=== PATIENT | female | born 1980 | race Two or more races ===

== ENCOUNTER 2017-02-27 08:38 | Inpatient (IN) | payer MEDICAID ==
[~2017-02-27] VITALS: Ht 152.4 cm; Wt 63.5 kg
[2017-02-27 08:40] VITALS: BP 139/93
[2017-02-27] MEDS ORDERED: Morphine Sulfate 4mg/ml Inj IVP ONE ×2 (09:00→15:00)
[2017-02-27] MEDS ORDERED: Famotidine 20 MG/ 2ML VIAL IVP ONE (09:00)
[2017-02-27 09:10] LABS: APPEARANCE,URINE SLIGHTLY CLOUDY; BASOPHILS % (AUTO) 0.7 % (0.0-2.0); EOSINOPHILS % (AUTO) 0.4 % (0.0-3.0); KETONES,URINE 1+ (NEGATIVE); LEUKOCYTE ESTERASE ,URINE 2+ (NEGATIVE); LYMPHOCYTES % (AUTO) 21.8 % (20.0-45.0); MEAN CORPUSCULAR HEMOGLOBIN 28.8 PG (27.0-31.0); MEAN CORPUSCULAR HGB CONC 34.2 G/DL (32.0-36.0); MEAN CORPUSCULAR VOLUME 84 FL (80-99); MEAN PLATELET VOLUME 7.1 FL (6.5-10.1); NEUTROPHILS % (AUTO) 69.1 % (45.0-75.0); NITRITE,URINE NEGATIVE (NEGATIVE); PH,URINE 7 (4.5-8.0); PLATELET COUNT 204 K/UL (150-450); PROTEIN,URINE 1+ (NEGATIVE); RED BLOOD COUNT 4.96 M/UL (4.20-5.40); RED CELL DISTRIBUTION WIDTH 14.1 % (11.6-14.8); UROBILINOGEN,URINE 4 MG/DL (0.0-1.0); WHITE BLOOD COUNT 5.6 K/UL (4.8-10.8)
[2017-02-27] MEDS ORDERED: ATENOLOL50 MG ORAL (09:18)
[2017-02-27] MEDS ORDERED: METFORMIN HCL1000 M1 ORAL (09:18)
[2017-02-27] MEDS ORDERED: GABAPENTIN300 MG ORAL (09:18)
[2017-02-27] MEDS ORDERED: LISINOPRIL-HCT1 EAC1 ORAL (09:18)
[2017-02-27 09:24] LABS: ALANINE AMINOTRANSFERASE 947 U/L (12-78); ALBUMIN/GLOBULIN RATIO 0.6 (1.0-2.7); AMORPHOUS SEDIMENT,UR FEW /LPF; ANION GAP 17 mmol/L (5-15); ASPARTATE AMINO TRANSFERASE 952 U/L (15-37); BACTERIA,URINE FEW /HPF; CALCIUM 7.9 MG/DL (8.5-10.1); CARBON DIOXIDE 19 MMOL/L (21-32); CHLORIDE 98 MMOL/L (98-107); GLOMERULAR FILTRATION RATE > 60 mL/min (>60); LIPASE 481 U/L (73-393); SODIUM 134 MMOL/L (136-145); SQUAMOUS EPITHELIAL CELL,UR MODERATE /LPF (NONE/OCC); TOTAL PROTEIN 7.9 G/DL (6.4-8.2)
--- NOTE | 2017-02-27 09:32 | Emergency Room Report ---
History of Present Illness General Chief Complaint: Abdominal Pain Source: Patient, EMS Present Illness HPI 36-year-old female presents ED for evaluation. Patient brought in by EMS complaining of abdominal pain. Started this morning around 8 AM at a restaurant. Patient states she has cramping abdominal pain, 8/10, diffuse. Nonradiating. Notes vomiting. Denies fevers or chills. Denies chest pain or shortness of breath. Denies diarrhea. Denies sick contacts or recent travel. No aggravating relieving factors. Denies any other associated symptoms Allergies: Coded Allergies: No Known Allergies (Unverified , 02/27/17) Patient History Past Medical History: DM, HTN Past Surgical History: none Pertinent Family History: none Social History: Denies: smoking, alcohol use, drug use Last Menstrual Period: 02/20/17 Now: No Immunizations: UTD Reviewed Nursing Documentation: PMH: Agreed, PSxH: Agreed Nursing Documentation-PMH Past Medical History: No History, Except For Hx Hypertension: Yes Hx Diabetes: Yes Review of Systems All Other Systems: negative except mentioned in HPI Physical Exam Vital Signs Date Time Temp Pulse Resp B/P (MAP) Pulse Ox O2 Delivery O2 Flow Rate FiO2 02/27/17 08:34 98.1 80 18 158/118 99 Room Air Sp02 EP Interpretation: reviewed, normal General Appearance: alert, GCS 15, non-toxic, mild distress, obese Head: normocephalic Eyes: bilateral eye normal inspection, bilateral eye PERRL ENT: normal ENT inspection Neck: normal inspection Respiratory: chest non-tender, lungs clear, normal breath sounds, speaking full sentences Cardiovascular #1: regular rate, rhythm, no edema Gastrointestinal: normal bowel sounds, soft, non-distended, no guarding, no rebound, tenderness Rectal: deferred Genitourinary: no CVA tenderness Musculoskeletal: normal inspection Neurologic: alert, oriented x3, responsive, motor strength/tone normal, sensory intact, speech normal Psychiatric: normal inspection Skin: normal inspection Lymphatic: normal inspection Medical Decision Making Diagnostic Impression: Primary Impression: Abdominal pain Qualified Codes: R10.11 - Right upper quadrant pain ER Course Hospital Course 36-year-old female presents to ED with abdominal pain and vomiting Differential diagnoses include: BPH, cystitis, pyelonephritis, kidney stone Clinical course 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 After initial history and physical I ordered labs, IV fluids, UA, pain medication and CT scan Labs - no leukocytosis, Hb/Hct stable, LFTs elevated, Lipase > 400 CT abdomen and pelvis - hepatomegaly, gallbladder with stones Patient continues to have pain. I believe patient should be admitted for further evaluation Case discussed with Dr. Padron and he agreed to accept the patient to his service for further care and support I feel this is a highly complex case requiring extensive working including EKG/ Rhythm strip, Xray/CT/US, Blood/urine lab work, repeat exams while in ED, and administration of strong opiates/narcotics for pain control, admission to hospital or close patient follow up. Diagnosis - abdominal pain Patient admitted to floor in serious condition Labs Test 02/27/17 08:50 White Blood Count 5.6 K/UL (4.8-10.8) Red Blood Count 4.96 M/UL (4.20-5.40) Hemoglobin 14.3 G/DL (12.0-16.0) Hematocrit 41.8 % (37.0-47.0) Mean Corpuscular Volume 84 FL (80-99) Mean Corpuscular Hemoglobin 28.8 PG (27.0-31.0) Mean Corpuscular Hemoglobin Concent 34.2 G/DL (32.0-36.0) Red Cell Distribution Width 14.1 % (11.6-14.8) Platelet Count 204 K/UL (150-450) Mean Platelet Volume 7.1 FL (6.5-10.1) Neutrophils (%) (Auto) 69.1 % (45.0-75.0) Lymphocytes (%) (Auto) 21.8 % (20.0-45.0) Monocytes (%) (Auto) 8.0 % (1.0-10.0) Eosinophils (%) (Auto) 0.4 % (0.0-3.0) Basophils (%) (Auto) 0.7 % (0.0-2.0) Urine Color Yellow Urine Appearance Slightly cloudy Urine pH 7 (4.5-8.0) Urine Specific [place] 1.015 (1.005-1.035) Urine Protein 1+ (NEGATIVE) Urine Glucose (UA) Negative (NEGATIVE) Urine Ketones 1+ (NEGATIVE) Urine Occult Blood 2+ (NEGATIVE) Urine Nitrite Negative (NEGATIVE) Urine Bilirubin Negative (NEGATIVE) Urine Urobilinogen 4 MG/DL (0.0-1.0) Urine Leukocyte Esterase 2+ (NEGATIVE) Urine RBC 2-4 /HPF (0 - 2) Urine WBC 5-10 /HPF (0 - 2) Urine Squamous Epithelial Cells Moderate /LPF (NONE/OCC) Urine Amorphous Sediment Few /LPF (NONE) Urine Bacteria Few /HPF (NONE) Urine HCG, Qualitative Negative Sodium Level 134 MMOL/L (136-145) Potassium Level 3.0 MMOL/L (3.5-5.1) Chloride Level 98 MMOL/L (98-107) Carbon Dioxide Level 19 MMOL/L (21-32) Anion Gap 17 mmol/L (5-15) Blood Urea Nitrogen 12 mg/dL (7-18) Creatinine 1.0 MG/DL (0.55-1.30) Estimat Glomerular Filtration Rate > 60 mL/min (>60) Glucose Level 182 MG/DL (74-106) Calcium Level 7.9 MG/DL (8.5-10.1) Total Bilirubin 1.0 MG/DL (0.2-1.0) Aspartate Amino Transf (AST/SGOT) 952 U/L (15-37) Alanine Aminotransferase (ALT/SGPT) 947 U/L (12-78) Alkaline Phosphatase 336 U/L (46-116) Total Protein 7.9 G/DL (6.4-8.2) Albumin 3.0 G/DL (3.4-5.0) Globulin 4.9 g/dL Albumin/Globulin Ratio 0.6 (1.0-2.7) Lipase 481 U/L (73-393) CT/MRI/US Diagnostic Results CT/MRI/US Diagnostic Results : Imaging Test Ordered: CT A/P Impression hepatomegaly with fatty infiltration. gallbladder with stones Last Vital Signs Date Time Temp Pulse Resp B/P (MAP) Pulse Ox O2 Delivery O2 Flow Rate FiO2 02/27/17 08:40 97 16 139/93 100 Room Air 02/27/17 08:34 98.1 Status: improved Disposition: ADMITTED INPATIENT Condition: Serious GUILLERMINA COREY M.D. Feb 27, 2017 09:32
[2017-02-27 10:00] VITALS: BP 157/99
--- NOTE | 2017-02-27 10:51 | Diagnostic Imaging Report ---
Indication: Abdominal pain Technique: Continuous helical transaxial imaging of the abdomen and pelvis was obtained from the lung bases to the pubic symphysis during intravenous contrast administration. Coronal 2-D reformats were also obtained. Study obtained in a Siemens sensation [address] Total Dose length Product (DLP): [address] Dose Index Volume (CTDIvol): 0.15, 19.28 mGy Comparison: None Findings: The liver is enlarged measuring 20 cm (craniocaudal) and diffusely hypodense consistent with fatty infiltration. There is a tiny gallstone versus calcification of the wall of the gallbladder. The spleen is normal in size and attenuation. Pancreas is unremarkable. There is no adrenal mass. Normal appendix demonstrated. No free fluid, free air or evidence of bowel obstruction demonstrated. There is no hydronephrosis. Uterus noted. Urinary bladder is unremarkable. Impression: Hepatomegaly with fatty infiltration. Tiny gallstone versus mural calcification within the gallbladder. Normal appendix The CT scanner at [facility] is accredited by the [employer] and the scans are performed using dose optimization techniques as appropriate to a performed exam including Automatic Exposure control.
[2017-02-27] MEDS ORDERED: cefTRIAXone 1 GM in NS 55 ML IVPB ONE (12:00)
[2017-02-27 12:15] VITALS: BP 122/92
[2017-02-27 14:50] VITALS: BP 133/80
[2017-02-27 15:00] VITALS: BP 125/87
--- NOTE | 2017-02-27 16:42 | Consultation ---
History of Present Illness General Date patient seen: Feb 27, 2017 Chief Complaint: Abdominal Pain Reason for Consultation: abdominal pain Present Illness HPI 36F with history of alcohol abuse presented with complaints of generalized abdominal, flank, and back pain. states that she has had intermittent pain all over for the past 6 months and has not been doing well. is having problems at home with and daughter and does not currently live at home. has been drinking frequently and too much. yesterday began to have nausea and multiple non blood emesis. today developed pain in lower abdomen, bilateral flank, and chest. came to ED for evaluation. labs demonstrated lft elevation and chemical pancreatitis. CT as noted below. Allergies: Coded Allergies: No Known Allergies (Unverified , 02/27/17) Medication History Scheduled Atenolol* (Tenormin*), 50 MG ORAL DAILY, (Reported) Gabapentin* (Gabapentin*), 300 MG ORAL THREE TIMES A DAY, (Reported) Lisinopril/Hydrochlorothiazide 20-12.5 Mg Tab (Lisinopril-Hctz 20-12.5 Mg Tab), 1 TAB ORAL DAILY, (Reported) Metformin Hcl* (Metformin Hcl*), 1,000 MG ORAL BID, (Reported) Patient History History Provided By: Patient, Medical Record Healthcare decision maker Resuscitation status Advanced Directive on File Past Medical/Surgical History Past Medical/Surgical History: (1) Abdominal pain Review of Systems Constitutional: Denies: no symptoms, see HPI, chills, sweats, fever, malaise, weakness, other Eye: Denies: no symptoms, see HPI, eye pain, blurred vision, tearing, double vision, nose pain, nose congestion, acuity changes, discharge, other Respiratory: Denies: no symptoms, see HPI, cough, orthopnea, shortness of breath, stridor, wheezing, PERALES, sputum, other Cardiovascular: Denies: no symptoms, see HPI, chest pain, edema, palpitations, syncope, PND, other Gastrointestinal: Reports: abdominal pain, nausea, vomiting Genitourinary: Denies: no symptoms, see HPI, discharge, dysuria, frequency, hematuria, pain, retention, incontinence, urgency, vag bleed/dc, other Musculoskeletal: Denies: no symptoms, see HPI, back pain, gout, joint pain, joint swelling, muscle pain, muscle stiffness, other Skin: Denies: no symptoms, see HPI, rash, change in color, change in hair/nails , dryness, lesions, other Psychiatric: Denies: no symptoms, see HPI, prior hx, anxiety, depressed feelings, emotional problems, SI, HI, hallucinations, other Endocrine: Denies: no symptoms, see HPI, excessive sweating, flushing, intolerance to temperature, increased thirst, increased urine, unexplained weight loss, other Hematologic/Lymphatic: Denies: no symptoms, see HPI, anemia, blood clots, easy bleeding, easy bruising, swollen glands, diathesis, other Physical Exam General Appearance: WD/WN, no apparent distress Lines, tubes and drains: peripheral HEENT: mucous membranes moist, PERRL Neck: normal inspection Respiratory/Chest: normal breath sounds, no respiratory distress, no accessory muscle use Cardiovascular/Chest: normal peripheral pulses, normal rate, regular rhythm Abdomen: normal bowel sounds, non tender, soft, no organomegaly, no mass, other - obese, pain in all quadrants but no rebound, no guarding, no peritonitis. states minly in lower abdomien Extremities: non-tender Skin Exam: normal pigmentation Neurologic: abnormal gait, alert Last 24 Hour Vital Signs Date Time Temp Pulse Resp B/P (MAP) Pulse Ox O2 Delivery O2 Flow Rate FiO2 02/27/17 15:00 97.7 79 18 125/87 98 Room Air 02/27/17 12:15 97.0 95 22 122/92 99 Room Air 02/27/17 10:00 97.6 104 15 157/99 99 Room Air 02/27/17 09:33 98.1 02/27/17 08:40 97 16 139/93 100 Room Air 02/27/17 08:34 98.1 80 18 158/118 99 Room Air Intake and Output 02/27/17 02/28/17 19:00 07:00 Intake Total 1055 ml Balance 1055 ml Intake IV Total 1055 ml # Voids 1 Laboratory Tests Test 02/27/17 08:50 White Blood Count 5.6 K/UL (4.8-10.8) Red Blood Count 4.96 M/UL (4.20-5.40) Hemoglobin 14.3 G/DL (12.0-16.0) Hematocrit 41.8 % (37.0-47.0) Mean Corpuscular Volume 84 FL (80-99) Mean Corpuscular Hemoglobin 28.8 PG (27.0-31.0) Mean Corpuscular Hemoglobin Concent 34.2 G/DL (32.0-36.0) Red Cell Distribution Width 14.1 % (11.6-14.8) Platelet Count 204 K/UL (150-450) Mean Platelet Volume 7.1 FL (6.5-10.1) Neutrophils (%) (Auto) 69.1 % (45.0-75.0) Lymphocytes (%) (Auto) 21.8 % (20.0-45.0) Monocytes (%) (Auto) 8.0 % (1.0-10.0) Eosinophils (%) (Auto) 0.4 % (0.0-3.0) Basophils (%) (Auto) 0.7 % (0.0-2.0) Urine Color Yellow Urine Appearance Slightly cloudy Urine pH 7 (4.5-8.0) Urine Specific [place] 1.015 (1.005-1.035) Urine Protein 1+ (NEGATIVE) H Urine Glucose (UA) Negative (NEGATIVE) Urine Ketones 1+ (NEGATIVE) H Urine Occult Blood 2+ (NEGATIVE) H Urine Nitrite Negative (NEGATIVE) Urine Bilirubin Negative (NEGATIVE) Urine Urobilinogen 4 MG/DL (0.0-1.0) H Urine Leukocyte Esterase 2+ (NEGATIVE) H Urine RBC 2-4 /HPF (0 - 2) H Urine WBC 5-10 /HPF (0 - 2) H Urine Squamous Epithelial Cells Moderate /LPF (NONE/OCC) H Urine Amorphous Sediment Few /LPF (NONE) H Urine Bacteria Few /HPF (NONE) Urine HCG, Qualitative Negative Sodium Level 134 MMOL/L (136-145) L Potassium Level 3.0 MMOL/L (3.5-5.1) L Chloride Level 98 MMOL/L (98-107) Carbon Dioxide Level 19 MMOL/L (21-32) L Anion Gap 17 mmol/L (5-15) H Blood Urea Nitrogen 12 mg/dL (7-18) Creatinine 1.0 MG/DL (0.55-1.30) Estimat Glomerular Filtration Rate > 60 mL/min (>60) Glucose Level 182 MG/DL (74-106) H Calcium Level 7.9 MG/DL (8.5-10.1) L Total Bilirubin 1.0 MG/DL (0.2-1.0) Aspartate Amino Transf (AST/SGOT) 952 U/L (15-37) H Alanine Aminotransferase (ALT/SGPT) 947 U/L (12-78) H Alkaline Phosphatase 336 U/L (46-116) H Total Protein 7.9 G/DL (6.4-8.2) Albumin 3.0 G/DL (3.4-5.0) L Globulin 4.9 g/dL Albumin/Globulin Ratio 0.6 (1.0-2.7) L Lipase 481 U/L (73-393) H Height (Feet): 5 Height (Inches): 0.00 Weight (Pounds): 140 Medications Current Medications Medications (Trade) Dose Ordered Sig/Giovanni Route PRN Reason Start Time Stop Time Status Last Admin Dose Admin Ondansetron HCl (Zofran) 4 mg Q6H PRN IVP Nausea & Vomiting 02/27/17 15:00 03/29/17 14:59 Sodium Chloride 1,000 ml @ 60 mls/hr [id number] IV 02/27/17 16:30 03/29/17 16:29 02/27/17 16:29 Assessment/Plan Problem List: (1) Abdominal pain Assessment & Plan: 36F with history of alcohol abuse here with abdominal pain, flank pain, chest wall pain, elevated lipase, elevated liver enzymes. CT with small stone in gallbladder. likely acute alcohol induced pancreatitis/hepatitis. -ultrasound to evaluate gallbladder as CT not very specific -NPO -IV fluids -repeat Labs -will follow ICD Codes: R10.9 - Unspecified abdominal pain SNOMED: [id number] Qualifiers: Qualified Codes: R10.11 - Right upper quadrant pain Status: stable DaquanVladimir ruiz Feb 27, 2017 16:42
--- NOTE | 2017-02-27 17:12 | GI Initial Consult Note ---
History of Present Illness General Date patient seen: Feb 27, 2017 Time patient seen: 17:06 Reason for Hospitalization: Abdominal Pain Referring physician: JUAN MANUEL DOWNING Reason for Consultation: abdominal pain Present Illness HPI 36-year-old female presents ED for evaluation. Patient brought in by EMS complaining of abdominal pain. Started this morning around 8 AM at a restaurant. Patient states she has cramping abdominal pain, 8/10, diffuse. Nonradiating. Notes vomiting. Denies fevers or chills. Denies chest pain or shortness of breath. Denies diarrhea. Denies sick contacts or recent travel. No aggravating relieving factors. Denies any other associated symptoms GI consulted for abdominal pain. HPI as noted above. Pt seen on floor, awake A &Ox4 c/o of abdominal pain with no active s/sx of N/V/D. Reports of previous vomiting, weekly ETOH use beer, denies drug use. She presents today with transaminitis, and elevated lipase levels. No history of endoscopy or colonoscopy. Home Meds Reported Medications Atenolol* (TENORMIN*) 50 Mg Tablet, 50 MG ORAL DAILY, TAB 02/27/17 Gabapentin* (GABAPENTIN*) 300 Mg Capsule, 300 MG ORAL THREE TIMES A DAY, CAP 0 Refills 02/27/17 Metformin Hcl* (METFORMIN HCL*) 1,000 Mg Tablet, 1000 MG ORAL BID, TAB 02/27/17 Lisinopril/Hydrochlorothiazide 20-12.5 Mg Tab (LISINOPRIL-HCTZ 20-12.5 MG TAB) 1 Each Tablet, 1 TAB ORAL DAILY, TAB 02/27/17 Med list reviewed/reconciled: Yes Allergies: Coded Allergies: No Known Allergies (Unverified , 02/27/17) Patient History PMH Narrative Past Medical History: DM, HTN Past Surgical History: none Pertinent Family History: none Social History: Denies: smoking, alcohol use, drug use Last Menstrual Period: 02/20/17 Now: No Immunizations: UTD Reviewed Nursing Documentation: PMH: Agreed, PSxH: Agreed Nursing Documentation-PMH Past Medical History: No History, Except For Hx Hypertension: Yes Hx Diabetes: Yes Social History: Reports: alcohol use - weekly, drug use - denies Review of Systems All Other Systems: negative except mentioned in HPI Physical Exam Vital Signs Date Time Temp Pulse Resp B/P (MAP) Pulse Ox O2 Delivery O2 Flow Rate FiO2 02/27/17 08:34 98.1 80 18 158/118 99 Room Air Sp02 EP Interpretation: reviewed, normal Labs Laboratory Tests Test 02/27/17 08:50 White Blood Count 5.6 K/UL (4.8-10.8) Red Blood Count 4.96 M/UL (4.20-5.40) Hemoglobin 14.3 G/DL (12.0-16.0) Hematocrit 41.8 % (37.0-47.0) Mean Corpuscular Volume 84 FL (80-99) Mean Corpuscular Hemoglobin 28.8 PG (27.0-31.0) Mean Corpuscular Hemoglobin Concent 34.2 G/DL (32.0-36.0) Red Cell Distribution Width 14.1 % (11.6-14.8) Platelet Count 204 K/UL (150-450) Mean Platelet Volume 7.1 FL (6.5-10.1) Neutrophils (%) (Auto) 69.1 % (45.0-75.0) Lymphocytes (%) (Auto) 21.8 % (20.0-45.0) Monocytes (%) (Auto) 8.0 % (1.0-10.0) Eosinophils (%) (Auto) 0.4 % (0.0-3.0) Basophils (%) (Auto) 0.7 % (0.0-2.0) Urine Color Yellow Urine Appearance Slightly cloudy Urine pH 7 (4.5-8.0) Urine Specific [place] 1.015 (1.005-1.035) Urine Protein 1+ (NEGATIVE) H Urine Glucose (UA) Negative (NEGATIVE) Urine Ketones 1+ (NEGATIVE) H Urine Occult Blood 2+ (NEGATIVE) H Urine Nitrite Negative (NEGATIVE) Urine Bilirubin Negative (NEGATIVE) Urine Urobilinogen 4 MG/DL (0.0-1.0) H Urine Leukocyte Esterase 2+ (NEGATIVE) H Urine RBC 2-4 /HPF (0 - 2) H Urine WBC 5-10 /HPF (0 - 2) H Urine Squamous Epithelial Cells Moderate /LPF (NONE/OCC) H Urine Amorphous Sediment Few /LPF (NONE) H Urine Bacteria Few /HPF (NONE) Urine HCG, Qualitative Negative Sodium Level 134 MMOL/L (136-145) L Potassium Level 3.0 MMOL/L (3.5-5.1) L Chloride Level 98 MMOL/L (98-107) Carbon Dioxide Level 19 MMOL/L (21-32) L Anion Gap 17 mmol/L (5-15) H Blood Urea Nitrogen 12 mg/dL (7-18) Creatinine 1.0 MG/DL (0.55-1.30) Estimat Glomerular Filtration Rate > 60 mL/min (>60) Glucose Level 182 MG/DL (74-106) H Calcium Level 7.9 MG/DL (8.5-10.1) L Total Bilirubin 1.0 MG/DL (0.2-1.0) Aspartate Amino Transf (AST/SGOT) 952 U/L (15-37) H Alanine Aminotransferase (ALT/SGPT) 947 U/L (12-78) H Alkaline Phosphatase 336 U/L (46-116) H Total Protein 7.9 G/DL (6.4-8.2) Albumin 3.0 G/DL (3.4-5.0) L Globulin 4.9 g/dL Albumin/Globulin Ratio 0.6 (1.0-2.7) L Lipase 481 U/L (73-393) H Urine Opiates Screen Negative (NEGATIVE) Urine Barbiturates Screen Negative (NEGATIVE) Phencyclidine (PCP) Screen Negative (NEGATIVE) Urine Amphetamines Screen Negative (NEGATIVE) Urine Benzodiazepines Screen Negative (NEGATIVE) Urine Cocaine Screen Negative (NEGATIVE) Urine Marijuana (THC) Screen Negative (NEGATIVE) General Appearance: well appearing, no apparent distress, alert, obese Head: normocephalic EENT: PERRL/EOMI, normal ENT inspection Neck: supple Respiratory: normal breath sounds, no respiratory distress Cardiovascular: normal rate Gastrointestinal: normal inspection, non tender, soft, normal bowel sounds, non -distended Rectal: deferred Genitourinary: no CVA tenderness Musculoskeletal: normal inspection, back normal Neurologic: normal inspection, alert, oriented x3, responsive Psychiatric: normal inspection, judgement/insight normal, memory normal Skin: normal inspection, normal color, no rash, warm/dry, palpation normal, well hydrated Lymphatic: normal inspection, no adenopathy Current Medications Current Medications Medications (Trade) Dose Ordered Sig/Giovanni Route PRN Reason Start Time Stop Time Status Last Admin Dose Admin Dextrose/ Electrolytes 1,000 ml @ 125 mls/hr Q8H IV 02/27/17 17:30 03/29/17 17:29 Ondansetron HCl (Zofran) 4 mg Q6H PRN IVP Nausea & Vomiting 02/27/17 15:00 03/29/17 14:59 GI: Plan Problems: (1) Acute alcoholic pancreatitis (2) Alcoholic hepatitis (3) Abdominal pain Plan surgery follows bowel rest >> maintain NPO + IVFs, ice chips okay pain mgmt ppi fu abdominal U/S fu MRCP repeat LFTs, lipase fu utox fu labs, GGT, lipid panel Discussed with Dr. Lake. Thank you for this patient referral, we will follow. Sharon Sherman N.P. Feb 27, 2017 17:12
[2017-02-27 20:10] VITALS: BP 126/85
[2017-02-27] MEDS ORDERED: Morphine Sulfate 2mg/ml Inj IV PRN (22:15)
[2017-02-28] VITALS (7 sets, daily range): BP systolic 122–144; BP diastolic 74–100
[2017-02-28] MEDS: NovoLOG Insulin Flexpen SUBQ SCH ×4 (05:38→21:00)
[2017-02-28] MEDS: Lisinopril 20mg tab ORAL SCH (06:35)
[2017-02-28 06:49] LABS: BASOPHILS % (AUTO) 0.7 % (0.0-2.0); EOSINOPHILS % (AUTO) 2.3 % (0.0-3.0); LYMPHOCYTES % (AUTO) 17.5 % (20.0-45.0); MEAN CORPUSCULAR HEMOGLOBIN 29.1 PG (27.0-31.0); MEAN CORPUSCULAR HGB CONC 34.5 G/DL (32.0-36.0); MEAN CORPUSCULAR VOLUME 84 FL (80-99); MEAN PLATELET VOLUME 7.1 FL (6.5-10.1); MONOCYTES % (AUTO) 6.6 % (1.0-10.0); NEUTROPHILS % (AUTO) 72.8 % (45.0-75.0); PLATELET COUNT 144 K/UL (150-450); RED BLOOD COUNT 4.49 M/UL (4.20-5.40); RED CELL DISTRIBUTION WIDTH 14.3 % (11.6-14.8); WHITE BLOOD COUNT 4.1 K/UL (4.8-10.8)
[2017-02-28 07:14] LABS: AMYLASE 33 U/L (25-115); LIPASE 214 U/L (73-393)
[2017-02-28 07:21] LABS: ALANINE AMINOTRANSFERASE 702 U/L (12-78); ALBUMIN/GLOBULIN RATIO 0.6 (1.0-2.7); ANION GAP 10 mmol/L (5-15); ASPARTATE AMINO TRANSFERASE 528 U/L (15-37); CALCIUM 7.5 MG/DL (8.5-10.1); CARBON DIOXIDE 24 MMOL/L (21-32); CHLORIDE 103 MMOL/L (98-107); CREATININE 0.8 MG/DL (0.55-1.30); GLOMERULAR FILTRATION RATE > 60 mL/min (>60); POTASSIUM 2.9 MMOL/L (3.5-5.1); SODIUM 137 MMOL/L (136-145); TOTAL PROTEIN 7.1 G/DL (6.4-8.2)
--- NOTE | 2017-02-28 07:41 | Infectious Diseases Prog Note ---
Assessment/Plan Problems: (1) Abnormal LFTs Assessment & Plan: Follow-up acute hepatitis panel. (2) Abdominal pain Assessment & Plan: Acute gastroenteritis? Supportive rx. Hold off on antibiotics. Subjective Allergies: Coded Allergies: No Known Allergies (Unverified , 02/27/17) Objective Vital Signs Last 24 Hour Vital Signs Date Time Temp Pulse Resp B/P (MAP) Pulse Ox O2 Delivery O2 Flow Rate FiO2 02/28/17 06:35 168/95 02/28/17 06:30 97.4 76 18 139/91 97 Room Air 02/28/17 04:00 98.3 76 18 144/100 96 Room Air 02/28/17 00:00 98.2 80 18 132/89 95 Room Air 02/27/17 20:10 98.2 79 19 126/85 97 Room Air 02/27/17 15:24 97.7 02/27/17 15:00 97.7 79 18 125/87 98 Room Air 02/27/17 14:50 97.0 91 16 133/80 100 Room Air 02/27/17 14:50 97.6 91 16 133/80 100 Room Air 02/27/17 12:15 97.0 95 22 122/92 99 Room Air 02/27/17 10:00 97.6 104 15 157/99 99 Room Air 02/27/17 09:33 98.1 02/27/17 08:40 97 16 139/93 100 Room Air 02/27/17 08:34 98.1 80 18 158/118 99 Room Air Height (Feet): 5 Height (Inches): 0.00 Weight (Pounds): 140 Laboratory Tests Test 02/27/17 08:50 02/28/17 05:30 White Blood Count 5.6 K/UL (4.8-10.8) 4.1 K/UL (4.8-10.8) L Red Blood Count 4.96 M/UL (4.20-5.40) 4.49 M/UL (4.20-5.40) Hemoglobin 14.3 G/DL (12.0-16.0) 13.1 G/DL (12.0-16.0) Hematocrit 41.8 % (37.0-47.0) 37.9 % (37.0-47.0) Mean Corpuscular Volume 84 FL (80-99) 84 FL (80-99) Mean Corpuscular Hemoglobin 28.8 PG (27.0-31.0) 29.1 PG (27.0-31.0) Mean Corpuscular Hemoglobin Concent 34.2 G/DL (32.0-36.0) 34.5 G/DL (32.0-36.0) Red Cell Distribution Width 14.1 % (11.6-14.8) 14.3 % (11.6-14.8) Platelet Count 204 K/UL (150-450) 144 K/UL (150-450) L Mean Platelet Volume 7.1 FL (6.5-10.1) 7.1 FL (6.5-10.1) Neutrophils (%) (Auto) 69.1 % (45.0-75.0) 72.8 % (45.0-75.0) Lymphocytes (%) (Auto) 21.8 % (20.0-45.0) 17.5 % (20.0-45.0) L Monocytes (%) (Auto) 8.0 % (1.0-10.0) 6.6 % (1.0-10.0) Eosinophils (%) (Auto) 0.4 % (0.0-3.0) 2.3 % (0.0-3.0) Basophils (%) (Auto) 0.7 % (0.0-2.0) 0.7 % (0.0-2.0) Urine Color Yellow Urine Appearance Slightly cloudy Urine pH 7 (4.5-8.0) Urine Specific [place] 1.015 (1.005-1.035) Urine Protein 1+ (NEGATIVE) H Urine Glucose (UA) Negative (NEGATIVE) Urine Ketones 1+ (NEGATIVE) H Urine Occult Blood 2+ (NEGATIVE) H Urine Nitrite Negative (NEGATIVE) Urine Bilirubin Negative (NEGATIVE) Urine Urobilinogen 4 MG/DL (0.0-1.0) H Urine Leukocyte Esterase 2+ (NEGATIVE) H Urine RBC 2-4 /HPF (0 - 2) H Urine WBC 5-10 /HPF (0 - 2) H Urine Squamous Epithelial Cells Moderate /LPF (NONE/OCC) H Urine Amorphous Sediment Few /LPF (NONE) H Urine Bacteria Few /HPF (NONE) Urine HCG, Qualitative Negative Sodium Level 134 MMOL/L (136-145) L 137 MMOL/L (136-145) Potassium Level 3.0 MMOL/L (3.5-5.1) L 2.9 MMOL/L (3.5-5.1) L Chloride Level 98 MMOL/L (98-107) 103 MMOL/L (98-107) Carbon Dioxide Level 19 MMOL/L (21-32) L 24 MMOL/L (21-32) Anion Gap 17 mmol/L (5-15) H 10 mmol/L (5-15) Blood Urea Nitrogen 12 mg/dL (7-18) 5 mg/dL (7-18) L Creatinine 1.0 MG/DL (0.55-1.30) 0.8 MG/DL (0.55-1.30) Estimat Glomerular Filtration Rate > 60 mL/min (>60) > 60 mL/min (>60) Glucose Level 182 MG/DL (74-106) H 207 MG/DL (74-106) H Calcium Level 7.9 MG/DL (8.5-10.1) L 7.5 MG/DL (8.5-10.1) L Total Bilirubin 1.0 MG/DL (0.2-1.0) 1.4 MG/DL (0.2-1.0) H Aspartate Amino Transf (AST/SGOT) 952 U/L (15-37) H 528 U/L (15-37) H Alanine Aminotransferase (ALT/SGPT) 947 U/L (12-78) H 702 U/L (12-78) H Alkaline Phosphatase 336 U/L (46-116) H 193 U/L (46-116) H Total Protein 7.9 G/DL (6.4-8.2) 7.1 G/DL (6.4-8.2) Albumin 3.0 G/DL (3.4-5.0) L 2.7 G/DL (3.4-5.0) L Globulin 4.9 g/dL 4.4 g/dL Albumin/Globulin Ratio 0.6 (1.0-2.7) L 0.6 (1.0-2.7) L Lipase 481 U/L (73-393) H 214 U/L (73-393) Urine Opiates Screen Negative (NEGATIVE) Urine Barbiturates Screen Negative (NEGATIVE) Phencyclidine (PCP) Screen Negative (NEGATIVE) Urine Amphetamines Screen Negative (NEGATIVE) Urine Benzodiazepines Screen Negative (NEGATIVE) Urine Cocaine Screen Negative (NEGATIVE) Urine Marijuana (THC) Screen Negative (NEGATIVE) Hemoglobin A1c Pending Direct Bilirubin Pending Gamma Glutamyl Transpeptidase Pending Triglycerides Level Pending Cholesterol Level Pending LDL Cholesterol Pending HDL Cholesterol Pending Cholesterol/HDL Ratio Pending Amylase Level 33 U/L (25-115) Hepatitis A IgM Antibody Pending Hepatitis B Surface Antigen Pending Hepatitis B Core IgM Antibody Pending Hepatitis C Antibody Pending Current Medications Medications (Trade) Dose Ordered Sig/Giovanni Route PRN Reason Start Time Stop Time Status Last Admin Dose Admin Acetaminophen (Tylenol) 650 mg Q4H PRN ORAL Mild Pain/Temp > 100.5 02/27/17 22:45 03/29/17 22:44 Atenolol (Tenormin) 50 mg DAILY ORAL 02/28/17 09:00 03/30/17 08:59 Dextrose (Dextrose 50%) STAT PRN IV Hypoglycemia 02/27/17 22:15 03/29/17 22:14 Dextrose/ Electrolytes 1,000 ml @ 125 mls/hr Q8H IV 02/27/17 17:30 03/29/17 17:29 02/28/17 01:31 Famotidine (Pepcid I.v.) 20 mg Q12HR IVP 02/28/17 09:00 03/30/17 08:59 Gabapentin (Neurontin) 300 mg THREE TIMES A DAY ORAL 02/28/17 09:00 03/30/17 08:59 Hydrochlorothiazide (Hydrodiuril) 12.5 mg DAILY ORAL 02/28/17 09:00 03/30/17 08:59 Insulin Aspart (NovoLOG) BEFORE MEALS AND HS SUBQ 02/28/17 06:30 03/30/17 06:29 02/28/17 05:38 Lisinopril (Prinivil) 20 mg DAILY ORAL 02/28/17 09:00 03/30/17 08:59 02/28/17 06:35 Morphine Sulfate (Morphine Sulfate) 2 mg Q4H PRN IV Severe Pain (Pain Scale 7-10) 02/27/17 22:15 03/06/17 22:14 02/27/17 23:03 Ondansetron HCl (Zofran) 4 mg Q6H PRN IVP Nausea & Vomiting 02/27/17 15:00 03/29/17 14:59 ZAMZAM AMBROSE Feb 28, 2017 07:41
[2017-02-28 08:13] LABS: BILIRUBIN,DIRECT 0.4 MG/DL (0.0-0.3)
[2017-02-28] MEDS ORDERED: hydroCHLOROthiazide 12.5mg TAB ORAL SCH (09:00)
[2017-02-28 09:25] LABS: HEMOGLOBIN A1C 7.8 % (4.3-6.0)
[2017-02-28 09:38] LABS: CHOLESTEROL 78 MG/DL (< 200); CHOLESTEROL/HDL RATIO 5.6 (3.3-4.4)
[2017-02-28] MEDS ORDERED: KCl 10% 40mEq/30ml liquid NG ONE (09:45)
--- NOTE | 2017-02-28 11:16 | General Progress Note ---
Progress Note Progress Note pt seen for abdominal pain .. hx of recent heavy etho. seen in ED for pain n/ v labs indicate pancreatitits. CT of abd suggested possible gallstone. reviewed with radiologist. Labs Test 02/27/17 08:50 02/28/17 05:30 White Blood Count 5.6 K/UL (4.8-10.8) 4.1 K/UL (4.8-10.8) Red Blood Count 4.96 M/UL (4.20-5.40) 4.49 M/UL (4.20-5.40) Hemoglobin 14.3 G/DL (12.0-16.0) 13.1 G/DL (12.0-16.0) Hematocrit 41.8 % (37.0-47.0) 37.9 % (37.0-47.0) Mean Corpuscular Volume 84 FL (80-99) 84 FL (80-99) Mean Corpuscular Hemoglobin 28.8 PG (27.0-31.0) 29.1 PG (27.0-31.0) Mean Corpuscular Hemoglobin Concent 34.2 G/DL (32.0-36.0) 34.5 G/DL (32.0-36.0) Red Cell Distribution Width 14.1 % (11.6-14.8) 14.3 % (11.6-14.8) Platelet Count 204 K/UL (150-450) 144 K/UL (150-450) Mean Platelet Volume 7.1 FL (6.5-10.1) 7.1 FL (6.5-10.1) Neutrophils (%) (Auto) 69.1 % (45.0-75.0) 72.8 % (45.0-75.0) Lymphocytes (%) (Auto) 21.8 % (20.0-45.0) 17.5 % (20.0-45.0) Monocytes (%) (Auto) 8.0 % (1.0-10.0) 6.6 % (1.0-10.0) Eosinophils (%) (Auto) 0.4 % (0.0-3.0) 2.3 % (0.0-3.0) Basophils (%) (Auto) 0.7 % (0.0-2.0) 0.7 % (0.0-2.0) Urine Color Yellow Urine Appearance Slightly cloudy Urine pH 7 (4.5-8.0) Urine Specific [place] 1.015 (1.005-1.035) Urine Protein 1+ (NEGATIVE) Urine Glucose (UA) Negative (NEGATIVE) Urine Ketones 1+ (NEGATIVE) Urine Occult Blood 2+ (NEGATIVE) Urine Nitrite Negative (NEGATIVE) Urine Bilirubin Negative (NEGATIVE) Urine Urobilinogen 4 MG/DL (0.0-1.0) Urine Leukocyte Esterase 2+ (NEGATIVE) Urine RBC 2-4 /HPF (0 - 2) Urine WBC 5-10 /HPF (0 - 2) Urine Squamous Epithelial Cells Moderate /LPF (NONE/OCC) Urine Amorphous Sediment Few /LPF (NONE) Urine Bacteria Few /HPF (NONE) Urine HCG, Qualitative Negative Sodium Level 134 MMOL/L (136-145) 137 MMOL/L (136-145) Potassium Level 3.0 MMOL/L (3.5-5.1) 2.9 MMOL/L (3.5-5.1) Chloride Level 98 MMOL/L (98-107) 103 MMOL/L (98-107) Carbon Dioxide Level 19 MMOL/L (21-32) 24 MMOL/L (21-32) Anion Gap 17 mmol/L (5-15) 10 mmol/L (5-15) Blood Urea Nitrogen 12 mg/dL (7-18) 5 mg/dL (7-18) Creatinine 1.0 MG/DL (0.55-1.30) 0.8 MG/DL (0.55-1.30) Estimat Glomerular Filtration Rate > 60 mL/min (>60) > 60 mL/min (>60) Glucose Level 182 MG/DL (74-106) 207 MG/DL (74-106) Calcium Level 7.9 MG/DL (8.5-10.1) 7.5 MG/DL (8.5-10.1) Total Bilirubin 1.0 MG/DL (0.2-1.0) 1.4 MG/DL (0.2-1.0) Aspartate Amino Transf (AST/SGOT) 952 U/L (15-37) 528 U/L (15-37) Alanine Aminotransferase (ALT/SGPT) 947 U/L (12-78) 702 U/L (12-78) Alkaline Phosphatase 336 U/L (46-116) 193 U/L (46-116) Total Protein 7.9 G/DL (6.4-8.2) 7.1 G/DL (6.4-8.2) Albumin 3.0 G/DL (3.4-5.0) 2.7 G/DL (3.4-5.0) Globulin 4.9 g/dL 4.4 g/dL Albumin/Globulin Ratio 0.6 (1.0-2.7) 0.6 (1.0-2.7) Lipase 481 U/L (73-393) 214 U/L (73-393) Urine Opiates Screen Negative (NEGATIVE) Urine Barbiturates Screen Negative (NEGATIVE) Phencyclidine (PCP) Screen Negative (NEGATIVE) Urine Amphetamines Screen Negative (NEGATIVE) Urine Benzodiazepines Screen Negative (NEGATIVE) Urine Cocaine Screen Negative (NEGATIVE) Urine Marijuana (THC) Screen Negative (NEGATIVE) Hemoglobin A1c 7.8 % (4.3-6.0) Direct Bilirubin 0.4 MG/DL (0.0-0.3) Gamma Glutamyl Transpeptidase 675 U/L (5-85) Triglycerides Level 165 MG/DL (0-200) Cholesterol Level 78 MG/DL (< 200) LDL Cholesterol 30 mg/dL (<100) HDL Cholesterol 14 MG/DL (40-60) Cholesterol/HDL Ratio 5.6 (3.3-4.4) Amylase Level 33 U/L (25-115) Pt is pending US, and an MRCP had also been ordered. nurses report that pt has been hallucinating and agitated. Vital Sign - Last 24 Hours 02/27/17 02/27/17 02/27/17 02/27/17 12:15 14:50 14:50 15:00 Temp 97.0 97.6 97.0 97.7 Pulse 95 91 91 79 Resp 22 16 16 18 B/P (MAP) 122/92 133/80 133/80 125/87 Pulse Ox 99 100 100 98 O2 Delivery Room Air Room Air Room Air Room Air 02/27/17 02/27/17 02/28/17 02/28/17 15:24 20:10 00:00 04:00 Temp 97.7 98.2 98.2 98.3 Pulse 79 80 76 Resp 19 18 18 B/P (MAP) 126/85 132/89 144/100 Pulse Ox 97 95 96 O2 Delivery Room Air Room Air Room Air 02/28/17 02/28/17 02/28/17 02/28/17 06:30 06:35 08:00 09:43 Temp 97.4 98.9 Pulse 76 97 97 Resp 18 18 B/P (MAP) 139/91 168/95 137/98 137/98 Pulse Ox 97 98 O2 Delivery Room Air Room Air Await imaging studies. but anticipate that pancreatitis is ethanol-related rather than gallstone pancreatitis. SHER MERCADO Feb 28, 2017 11:16
--- NOTE | 2017-02-28 12:45 | Diagnostic Imaging Report ---
Indication: Abdominal pain Technique: Coronal and axial single shot fast spin-echo images were obtained. Patient subsequently wish to stop the study so no further sequences were obtained Comparison: Reference made to CT scan 02/27/2017 Findings: Exam is extremely limited, given the availability of only 2 sequences. In addition, the sequences are available are severely hampered by motion artifact. The gallbladder is not sufficiently well demonstrated to assess the calcification described on recent CT scan. No gross biliary ductal dilatation. The liver is grossly unremarkable. The kidneys are grossly unremarkable. The spleen is grossly unremarkable. Impression: Essentially nondiagnostic exam, due to incompleteness of the exam and severe image degradation due to motion artifact on the available images
--- NOTE | 2017-02-28 12:55 | Consultation ---
Consult Note Consult Note asked to eval at the request of Dr Curry 36-year-old female presents ED for evaluation. Patient brought in by EMS complaining of abdominal pain. Started this morning around 8 AM at a restaurant. Patient states she has cramping abdominal pain, 8/10, diffuse. Nonradiating. Notes vomiting. Denies fevers or chills. Denies chest pain or shortness of breath. Denies diarrhea. Denies sick contacts or recent travel. No aggravating relieving factors. Denies any other associated symptoms . Assessment/Plan abd pain- fatty liver and GSs: Alcoholic Hepatitis and Pancreatitis HTN DM Etoh abuse Per consultants- K supplement abnormal LFTs monitor BP and renal parameters ANTONIA EDMONDSON Feb 28, 2017 12:55
[2017-02-28] MEDS: Famotidine 20 MG/ 2ML VIAL IVP SCH ×2 (13:00→21:49)
[2017-02-28] MEDS ORDERED: Ketorolac 30mg Inj IV SCH (13:00)
[2017-02-28] MEDS ORDERED: LORazepam Inj 2mg/ml 1ml IV PRN (13:15)
[2017-02-28] MEDS ORDERED: LORazepam Inj 2mg/ml 1ml IV ONE (14:15)
[2017-02-28] MEDS ORDERED: 1/2 NS 1000ml IV ONE (15:56)
--- NOTE | 2017-02-28 16:02 | Diagnostic Imaging Report ---
Indication: History low back pain x1 day, leg weakness Technique: Sagittal T1, sagittal T2 PROPELLER, sagittal STIR, T1 FLAIR PROPELLER, axial T2 FRFSE, pre-and postcontrast axial and sagittal T1 fat-saturated images of the lumbar spine Comparison: None Findings: Bony alignment is normal. Vertebral body heights are preserved. Vertebral body marrow signal is normal except for a small L1 vertebral body hemangioma. Disc spaces are preserved. Disc signal is preserved. Conus medullaris terminates at the L1 level. No significant disc bulge or protrusion. No evidence of spinal stenosis or neural foraminal stenosis. No unusual contrast enhancement. The included extraspinal soft tissues are unremarkable. Impression: Negative
--- NOTE | 2017-02-28 16:54 | GI Progress Note ---
Assessment/Plan Problems: (1) Acute alcoholic pancreatitis ICD Codes: K85.20 - Alcohol induced acute pancreatitis without necrosis or infection SNOMED: 083103878 (2) Alcoholic hepatitis ICD Codes: K70.10 - Alcoholic hepatitis without ascites SNOMED: 528951633 (3) Abdominal pain ICD Codes: R10.9 - Unspecified abdominal pain SNOMED: 70925984 Qualifiers: Qualified Codes: R10.11 - Right upper quadrant pain (4) Abnormal LFTs ICD Codes: R79.89 - Other specified abnormal findings of blood chemistry SNOMED: 883980926 (5) Shock liver ICD Codes: K72.00 - Acute and subacute hepatic failure without coma SNOMED: 346347256 Status: stable Status Narrative Discussed with Dr. Lake. Assessment/Plan MRCP reviewed >> Essentially nondiagnostic exam. abdominal U/S reviewed >> Hepatomegaly with fatty infiltration. Possible gallstone. elevated LFTs most likely 2/2 to shock liver unknown etiology >> resolving utox unremarkable lipase now normal elevated GGT hep panel >> negative patient admits being depressed and abusing ETOH adv to soft diet today pain mgmt ppi repeat LFTs fu labs Subjective Gastrointestinal/Abdominal: Reports: no symptoms Subjective abdominal pain improved Objective Last 24 Hour Vital Signs Date Time Temp Pulse Resp B/P (MAP) Pulse Ox O2 Delivery O2 Flow Rate FiO2 02/28/17 12:00 97.7 67 18 122/82 99 Room Air 02/28/17 09:43 97 137/98 02/28/17 08:00 98.9 97 18 137/98 98 Room Air 02/28/17 06:35 168/95 02/28/17 06:30 97.4 76 18 139/91 97 Room Air 02/28/17 04:00 98.3 76 18 144/100 96 Room Air 02/28/17 00:00 98.2 80 18 132/89 95 Room Air 02/27/17 20:10 98.2 79 19 126/85 97 Room Air Laboratory Tests Test 02/28/17 05:30 White Blood Count 4.1 K/UL (4.8-10.8) L Red Blood Count 4.49 M/UL (4.20-5.40) Hemoglobin 13.1 G/DL (12.0-16.0) Hematocrit 37.9 % (37.0-47.0) Mean Corpuscular Volume 84 FL (80-99) Mean Corpuscular Hemoglobin 29.1 PG (27.0-31.0) Mean Corpuscular Hemoglobin Concent 34.5 G/DL (32.0-36.0) Red Cell Distribution Width 14.3 % (11.6-14.8) Platelet Count 144 K/UL (150-450) L Mean Platelet Volume 7.1 FL (6.5-10.1) Neutrophils (%) (Auto) 72.8 % (45.0-75.0) Lymphocytes (%) (Auto) 17.5 % (20.0-45.0) L Monocytes (%) (Auto) 6.6 % (1.0-10.0) Eosinophils (%) (Auto) 2.3 % (0.0-3.0) Basophils (%) (Auto) 0.7 % (0.0-2.0) Sodium Level 137 MMOL/L (136-145) Potassium Level 2.9 MMOL/L (3.5-5.1) L Chloride Level 103 MMOL/L (98-107) Carbon Dioxide Level 24 MMOL/L (21-32) Anion Gap 10 mmol/L (5-15) Blood Urea Nitrogen 5 mg/dL (7-18) L Creatinine 0.8 MG/DL (0.55-1.30) Estimat Glomerular Filtration Rate > 60 mL/min (>60) Glucose Level 207 MG/DL (74-106) H Hemoglobin A1c 7.8 % (4.3-6.0) H Calcium Level 7.5 MG/DL (8.5-10.1) L Total Bilirubin 1.4 MG/DL (0.2-1.0) H Direct Bilirubin 0.4 MG/DL (0.0-0.3) H Gamma Glutamyl Transpeptidase 675 U/L (5-85) H Aspartate Amino Transf (AST/SGOT) 528 U/L (15-37) H Alanine Aminotransferase (ALT/SGPT) 702 U/L (12-78) H Alkaline Phosphatase 193 U/L (46-116) H Total Protein 7.1 G/DL (6.4-8.2) Albumin 2.7 G/DL (3.4-5.0) L Globulin 4.4 g/dL Albumin/Globulin Ratio 0.6 (1.0-2.7) L Triglycerides Level 165 MG/DL (0-200) Cholesterol Level 78 MG/DL (< 200) LDL Cholesterol 30 mg/dL (<100) HDL Cholesterol 14 MG/DL (40-60) L Cholesterol/HDL Ratio 5.6 (3.3-4.4) H Amylase Level 33 U/L (25-115) Lipase 214 U/L (73-393) Hepatitis A IgM Antibody Pending Hepatitis B Surface Antigen Pending Hepatitis B Core IgM Antibody Pending Hepatitis C Antibody Pending Height (Feet): 5 Height (Inches): 0.00 Weight (Pounds): 140 General Appearance: no apparent distress, alert Cardiovascular: normal rate Respiratory/Chest: normal breath sounds, no respiratory distress Abdominal Exam: normal bowel sounds, non tender, soft Extremities: normal range of motion, non-tender Sharon Sherman N.P. Feb 28, 2017 16:54
[2017-02-28] MEDS: D5NS w/KCl 40mEq 1000ml 1,000 ML IV SCH (17:04)
--- NOTE | 2017-02-28 17:21 | Neurology Progress Note ---
Objective Physical Exam Last Vital Signs Date Time Temp Pulse Resp B/P (MAP) Pulse Ox O2 Delivery O2 Flow Rate FiO2 02/28/17 12:00 97.7 67 18 122/82 99 Room Air Laboratory Tests Test 02/28/17 05:30 White Blood Count 4.1 K/UL (4.8-10.8) L Red Blood Count 4.49 M/UL (4.20-5.40) Hemoglobin 13.1 G/DL (12.0-16.0) Hematocrit 37.9 % (37.0-47.0) Mean Corpuscular Volume 84 FL (80-99) Mean Corpuscular Hemoglobin 29.1 PG (27.0-31.0) Mean Corpuscular Hemoglobin Concent 34.5 G/DL (32.0-36.0) Red Cell Distribution Width 14.3 % (11.6-14.8) Platelet Count 144 K/UL (150-450) L Mean Platelet Volume 7.1 FL (6.5-10.1) Neutrophils (%) (Auto) 72.8 % (45.0-75.0) Lymphocytes (%) (Auto) 17.5 % (20.0-45.0) L Monocytes (%) (Auto) 6.6 % (1.0-10.0) Eosinophils (%) (Auto) 2.3 % (0.0-3.0) Basophils (%) (Auto) 0.7 % (0.0-2.0) Sodium Level 137 MMOL/L (136-145) Potassium Level 2.9 MMOL/L (3.5-5.1) L Chloride Level 103 MMOL/L (98-107) Carbon Dioxide Level 24 MMOL/L (21-32) Anion Gap 10 mmol/L (5-15) Blood Urea Nitrogen 5 mg/dL (7-18) L Creatinine 0.8 MG/DL (0.55-1.30) Estimat Glomerular Filtration Rate > 60 mL/min (>60) Glucose Level 207 MG/DL (74-106) H Hemoglobin A1c 7.8 % (4.3-6.0) H Calcium Level 7.5 MG/DL (8.5-10.1) L Total Bilirubin 1.4 MG/DL (0.2-1.0) H Direct Bilirubin 0.4 MG/DL (0.0-0.3) H Gamma Glutamyl Transpeptidase 675 U/L (5-85) H Aspartate Amino Transf (AST/SGOT) 528 U/L (15-37) H Alanine Aminotransferase (ALT/SGPT) 702 U/L (12-78) H Alkaline Phosphatase 193 U/L (46-116) H Total Protein 7.1 G/DL (6.4-8.2) Albumin 2.7 G/DL (3.4-5.0) L Globulin 4.4 g/dL Albumin/Globulin Ratio 0.6 (1.0-2.7) L Triglycerides Level 165 MG/DL (0-200) Cholesterol Level 78 MG/DL (< 200) LDL Cholesterol 30 mg/dL (<100) HDL Cholesterol 14 MG/DL (40-60) L Cholesterol/HDL Ratio 5.6 (3.3-4.4) H Amylase Level 33 U/L (25-115) Lipase 214 U/L (73-393) Hepatitis A IgM Antibody Pending Hepatitis B Surface Antigen Pending Hepatitis B Core IgM Antibody Pending Hepatitis C Antibody Pending Impression/Recommendations Problems: (1) r/o acute lumbar sacral plexopthy (2) acute L leg pulsy (3) Shock liver (4) Alcoholic hepatitis (5) Acute alcoholic pancreatitis Status: stable Recommendations # [id number] stat MRI ls spine, arterial doppler consider Steroids NIR MASON Feb 28, 2017 17:21
--- NOTE | 2017-02-28 21:45 | History and Physical Report ---
DATE OF ADMISSION: 02/27/2017 HISTORY OF PRESENT ILLNESS: The patient basically comes in because of biliary colic, abdominal pain, elevated LFTs, and CT scan also showed hepatomegaly. The patient was basically saying that she had abdominal pain for 1 week and comes and goes, intermittent in quality, but denies nausea, vomiting, or diarrhea. Denies constipation. Denies shortness of breath. Denies chest pain. Also, the patient complains of left leg paresthesia and cold to touch, which has been chronic and going on for a while now, for which the patient gets gabapentin. PAST MEDICAL HISTORY: Neuropathy, hypertension, NIDDM, and history of alcohol abuse. PAST SURGICAL HISTORY: . MEDICATIONS: Atenolol, gabapentin, hydrochlorothiazide, lisinopril, and metformin. ALLERGIES: No known allergies. SOCIAL HISTORY: The patient has no history of smoking or drug abuse. She does have history of alcohol abuse. FAMILY HISTORY: Noncontributory. REVIEW OF SYSTEMS: HEENT: Denies headaches. RESPIRATORY: Denies shortness of breath. Denies cough. CARDIOVASCULAR: Denies chest pain. Denies orthopnea. GASTROINTESTINAL: Reports abdominal pain for one week. No nausea or vomiting. No constipation. No rectal bleeding. EXTREMITIES: Does have left leg paresthesia and cold to touch, which is chronic. CENTRAL NERVOUS SYSTEM: No change in vision or speech pattern. PHYSICAL EXAMINATION: VITAL SIGNS: Temperature is 98.2 degrees, pulse is 80, and blood pressure 130/89. HEENT: PERRLA. NECK: Supple. No lymphadenopathy. CHEST: Clear to auscultation. GASTROINTESTINAL: Soft, nontender, and nondistended. No organomegaly. EXTREMITIES: No edema. Moves all 4 extremities. She does have some weakness in the left lower extremity. NEUROLOGIC: Sensory intact to light touch. Reflexes are equal no both sides. LABORATORY DATA: WBC of 5.6, hemoglobin of 14.3, and platelets of 204. Sodium 134, potassium 3, BUN of 12, creatinine 1, and glucose of 182. AST of 952 and ALT of 947. ASSESSMENT: 1. History of alcohol abuse. 2. History of colicky abdominal pain. 3. Hypokalemia. 4. Elevated liver function tests. PLAN: I have asked Dr. Lake, Dr. Collins, Dr. Valenzuela, Dr. Parra, Dr. Eng, and Dr. Garcia to see the patient for the above-mentioned diagnoses and treatment, rule out any surgical etiology, as well as Dr. Garcia will be in-charge of the left leg paresthesia and cold to touch/neuropathy. Dr. Lake also will be helping to find out why the patient has elevated LFTs. Antibiotics per Dr. Valenzuela. Ruben Padron M.D. DR: CHANTEL JOB#: [id number] CC:
--- NOTE | 2017-02-28 23:52 | Consultation ---
History of Present Illness General Chief Complaint: Abdominal Pain Referring physician: JUAN MANUEL DOWNING Reason for Consultation: abdominal pain Present Illness HPI the pt with hx of depression and anxiety she is tearful and has decrease energy .she spoke about her daughter thats taken away by [facility] due to the pt drinking issues. Allergies: Coded Allergies: No Known Allergies (Unverified , 02/27/17) Medication History Scheduled Atenolol* (Tenormin*), 50 MG ORAL DAILY, (Reported) Gabapentin* (Gabapentin*), 300 MG ORAL THREE TIMES A DAY, (Reported) Lisinopril/Hydrochlorothiazide 20-12.5 Mg Tab (Lisinopril-Hctz 20-12.5 Mg Tab), 1 TAB ORAL DAILY, (Reported) Metformin Hcl* (Metformin Hcl*), 1,000 MG ORAL BID, (Reported) Patient History History Provided By: Patient, Medical Record, PMD Healthcare decision maker Resuscitation status Advanced Directive on File Past Medical/Surgical History Past Medical/Surgical History: (1) Abdominal pain (2) Alcoholic hepatitis (3) Acute alcoholic pancreatitis (4) Abnormal LFTs (5) acute L leg pulsy (6) Shock liver (7) r/o acute lumbar sacral plexopthy Review of Systems Psychiatric: Reports: prior hx, anxiety, depressed feelings, emotional problems Physical Exam General Appearance: no apparent distress, alert, obese Neurologic: alert, oriented x 3, responsive, depressed affect Last 24 Hour Vital Signs Date Time Temp Pulse Resp B/P (MAP) Pulse Ox O2 Delivery O2 Flow Rate FiO2 02/28/17 20:00 97.1 68 18 124/74 100 Nasal Cannula 3.0 02/28/17 16:00 97.0 18 125/92 100 Nasal Cannula 3.0 02/28/17 12:00 97.7 67 18 122/82 99 Room Air 02/28/17 09:43 97 137/98 02/28/17 08:00 98.9 97 18 137/98 98 Room Air 02/28/17 06:35 168/95 02/28/17 06:30 97.4 76 18 139/91 97 Room Air 02/28/17 04:00 98.3 76 18 144/100 96 Room Air 02/28/17 00:00 98.2 80 18 132/89 95 Room Air Intake and Output 02/28/17 03/01/17 19:00 07:00 Intake Total 150 ml Balance 150 ml Intake IV Total 150 ml # Voids 2 Laboratory Tests Test 02/28/17 05:30 White Blood Count 4.1 K/UL (4.8-10.8) L Red Blood Count 4.49 M/UL (4.20-5.40) Hemoglobin 13.1 G/DL (12.0-16.0) Hematocrit 37.9 % (37.0-47.0) Mean Corpuscular Volume 84 FL (80-99) Mean Corpuscular Hemoglobin 29.1 PG (27.0-31.0) Mean Corpuscular Hemoglobin Concent 34.5 G/DL (32.0-36.0) Red Cell Distribution Width 14.3 % (11.6-14.8) Platelet Count 144 K/UL (150-450) L Mean Platelet Volume 7.1 FL (6.5-10.1) Neutrophils (%) (Auto) 72.8 % (45.0-75.0) Lymphocytes (%) (Auto) 17.5 % (20.0-45.0) L Monocytes (%) (Auto) 6.6 % (1.0-10.0) Eosinophils (%) (Auto) 2.3 % (0.0-3.0) Basophils (%) (Auto) 0.7 % (0.0-2.0) Sodium Level 137 MMOL/L (136-145) Potassium Level 2.9 MMOL/L (3.5-5.1) L Chloride Level 103 MMOL/L (98-107) Carbon Dioxide Level 24 MMOL/L (21-32) Anion Gap 10 mmol/L (5-15) Blood Urea Nitrogen 5 mg/dL (7-18) L Creatinine 0.8 MG/DL (0.55-1.30) Estimat Glomerular Filtration Rate > 60 mL/min (>60) Glucose Level 207 MG/DL (74-106) H Hemoglobin A1c 7.8 % (4.3-6.0) H Calcium Level 7.5 MG/DL (8.5-10.1) L Total Bilirubin 1.4 MG/DL (0.2-1.0) H Direct Bilirubin 0.4 MG/DL (0.0-0.3) H Gamma Glutamyl Transpeptidase 675 U/L (5-85) H Aspartate Amino Transf (AST/SGOT) 528 U/L (15-37) H Alanine Aminotransferase (ALT/SGPT) 702 U/L (12-78) H Alkaline Phosphatase 193 U/L (46-116) H Total Protein 7.1 G/DL (6.4-8.2) Albumin 2.7 G/DL (3.4-5.0) L Globulin 4.4 g/dL Albumin/Globulin Ratio 0.6 (1.0-2.7) L Triglycerides Level 165 MG/DL (0-200) Cholesterol Level 78 MG/DL (< 200) LDL Cholesterol 30 mg/dL (<100) HDL Cholesterol 14 MG/DL (40-60) L Cholesterol/HDL Ratio 5.6 (3.3-4.4) H Amylase Level 33 U/L (25-115) Lipase 214 U/L (73-393) Hepatitis A IgM Antibody Pending Hepatitis B Surface Antigen Pending Hepatitis B Core IgM Antibody Pending Hepatitis C Antibody Pending Height (Feet): 5 Height (Inches): 0.00 Weight (Pounds): 140 Medications Current Medications Medications (Trade) Dose Ordered Sig/Giovanni Route PRN Reason Start Time Stop Time Status Last Admin Dose Admin Atenolol (Tenormin) 50 mg DAILY ORAL 02/28/17 09:00 03/30/17 08:59 02/28/17 09:43 Dexamethasone Sodium Phosphate (Decadron 4mg/ml vial) 4 mg Q6HR IVP 03/01/17 00:00 03/31/17 00:00 Dextrose (Dextrose 50%) STAT PRN IV Hypoglycemia 02/27/17 22:15 03/29/17 22:14 Dextrose/ Electrolytes 1,000 ml @ 75 mls/hr [id number] IV 02/28/17 14:00 03/30/17 13:59 02/28/17 17:04 Famotidine (Pepcid I.v.) 20 mg Q12HR IVP 02/28/17 09:00 03/30/17 08:59 02/28/17 21:49 Gabapentin (Neurontin) 300 mg THREE TIMES A DAY ORAL 02/28/17 09:00 03/30/17 08:59 02/28/17 13:55 Hydromorphone HCl (Dilaudid) 0.5 mg Q4H PRN IVP PAIN 4-10 02/28/17 13:00 03/07/17 12:59 Insulin Aspart (NovoLOG) BEFORE MEALS AND HS SUBQ 02/28/17 06:30 03/30/17 06:29 02/28/17 21:00 Lisinopril (Prinivil) 20 mg DAILY ORAL 02/28/17 09:00 03/30/17 08:59 02/28/17 06:35 Lorazepam (Ativan 2mg/ml 1ml) 1 mg ONCE PRN IV PRIOR TO MRI 02/28/17 13:15 02/28/17 23:59 02/28/17 13:19 Ondansetron HCl (Zofran) 4 mg Q6H PRN IVP Nausea & Vomiting 02/27/17 15:00 03/29/17 14:59 Assessment/Plan Status: stable, progressing Assessment/Plan mdd alcohol dependecen alcohol w/d -prozac -valium -trazadone Hilario Parra M.D. Feb 28, 2017 23:51
[2017-03-01] VITALS (7 sets, daily range): BP systolic 110–128; BP diastolic 70–90
[2017-03-01] MEDS: Dexamethasone 4mg/ml vial IVP SCH ×3 (00:11→12:32)
--- NOTE | 2017-03-01 01:30 | Consultation ---
DATE OF CONSULTATION: 02/28/2017 NEUROLOGICAL CONSULTATION CONSULTING PHYSICIAN: Cornel Garcia M.D. REQUESTING PHYSICIAN: Ruben Padron M.D. HISTORY OF PRESENT ILLNESS: This 36-year-old female is seen in neurological consultation to evaluate new onset of left lower extremity palsy. The patient informed me that she woke up last night, feeling tingling and cold in her left lower extremity. In the morning, she found that she is unable to ambulate due to profound weakness in her left lower extremity. At this point, neurology consult was requested. The patient was brought to this hospital complaining of generalized abdominal pain, flank pain, chronic low back pain with intermittent aches and pains over the last 6 months. The patient apparently was in conflict with her and daughter, so she stayed out of house and was heavily drinking. She stopped. Her last drink was the day prior to admission when she developed nausea and increasing pain in her lower abdomen, flank region. Following admission, lab work was obtained. This revealed normal CBC study. Urinalysis with WBC 5-10, 2+ leukocyte esterase, and 1+ protein. Toxicology panel was negative. Chemistry panel with elevated lipase of 481, elevated AST of 952, ALT of 947, alkaline phosphatase of 336. Potassium 3.0, sodium 134. GGT of 675. Following admission, vital signs remained stable. She was afebrile. Imaging studies were requested and this included an abdomen and pelvis CT scan revealing hepatomegaly with fatty infiltration, no evidence of retroperitoneal lesion. Abdominal MRI essentially nondiagnostic due to incompleteness of examination with severe image degradation. Following my own examination, a stat MRI of the lumbar spine with and without contrast was obtained. The patient was pre-sedated with Ativan 2 mg and the study was obtained, revealing no evidence of spinal stenosis, no disk bulging or protrusion, essentially no abnormality. Her current status is acute alcoholic pancreatitis and alcoholic hepatitis with abnormal liver function tests and evidence of shock liver. PAST MEDICAL HISTORY: The patient has history of hypertension, diabetes type 2, and history of alcohol abuse. CURRENT MEDICATIONS: Treatment prior to admission included atenolol, gabapentin 300 mg t.i.d., lisinopril, and metformin 1000 mg b.i.d. ALLERGIES: None reported. SOCIAL HISTORY: Lives alone. There is a history of alcohol abuse but denies drug abuse. REVIEW OF SYMPTOMS: Weakness and inability to move left lower extremity with numbness and tingling sensation, left lower extremity. In addition, she has constant low back pain and anxiety. She has abdominal discomfort, but no urine or bowel incontinence. No recent injuries. PHYSICAL EXAMINATION: GENERAL: A well-developed and somewhat ill-appearing female, not in acute distress, but quite anxious and very concerned with inability to move her left leg. MUSCULOSKELETAL: Remarkable for tenderness on palpation in the lumbosacral area. There is no tenderness on palpation of lower extremities, no deformities. Peripheral pulses, 1+ and symmetric. There is some coldness in the left lower extremity on the touch. No discoloration or vasomotor abnormalities. There is slight tenderness in the left hip as well as groin region. Straight leg raising test negative. MENTAL STATUS: She is alert, oriented x3 with no evidence of aphasia or apraxia. She is very anxious, tense, poor historian. CRANIAL NERVE II: Pupils, both responding to light and accommodation. Extraocular movements intact. CRANIAL NERVE V: Normal corneal responses. CRANIAL NERVE VII: No facial asymmetry. CRANIAL NERVE VIII: Normal hearing. CRANIAL NERVES IX THROUGH XII: Within normal limits. MOTOR EXAMINATION: Normal muscle tone and strength in both upper extremities as well as the right lower extremity. There is weakness 1/5 in the left lower extremity, unable to lift left leg, unable to bend or move her toes. Muscle tone appears normal in both lower extremities, no spasticity. Deep tendon reflexes 2+, bilaterally symmetric except 1+ in both ankle jerks. Plantar responses flexor. No pathological responses. SENSORY EXAMINATION: Reduced response to pin stimulation at distal aspect of left lower extremity, non-dermatomal distribution. Gait unable to test as the patient had discomfort when trying to get up or stand up on her feet. IMPRESSION: 1. Acute peripheral left lower extremity palsy, rule out acute lumbosacral plexopathy, rule out alcohol-related amyotrophy. 2. Rule out acute arterial occlusion, left lower extremity. DISCUSSION: The patient had a quite sudden onset of left lower extremity numbness, tingling, pain, and paralysis. Apparently, she was ambulatory with no symptoms related to her lower extremities as of yesterday. Her last drink was the day prior to admission. She has a history of heavy alcohol abuse. In addition, she has diabetes, all contributing to plexopathy. MRI of lumbosacral spine revealed no intraspinal or nerve root abnormalities. MRI of the abdomen and CT of the abdomen and pelvis revealed no retroperitoneal lesions to account for abrupt onset of weakness. Arterial duplex was requested on a stat basis. Meanwhile, if okay by GI, we will have a trial of steroids, Decadron 4 mg q.6 with close monitoring of blood pressure, blood sugar, and liver function. I will follow with you. Thank you for allowing me to see this interesting patient in neurological consultation. Cornel Garcia M.D. DR: NICCI JOB#: [id number] CC:
[2017-03-01] MEDS: D5NS w/KCl 40mEq 1000ml 1,000 ML IV SCH ×2 (01:53→17:06)
[2017-03-01] MEDS: Hydromorphone 0.5mg/0.5ml inj IVP PRN (01:54)
[2017-03-01 07:16] LABS: MEAN CORPUSCULAR HEMOGLOBIN 28.4 PG (27.0-31.0); MEAN CORPUSCULAR HGB CONC 33.1 G/DL (32.0-36.0); MEAN CORPUSCULAR VOLUME 86 FL (80-99); MEAN PLATELET VOLUME 9.3 FL (6.5-10.1); PLATELET COUNT 130 K/UL (150-450); RED BLOOD COUNT 4.33 M/UL (4.20-5.40); RED CELL DISTRIBUTION WIDTH 14.9 % (11.6-14.8)
[2017-03-01] MEDS: NovoLOG Insulin Flexpen SUBQ SCH ×4 (07:26→21:37)
[2017-03-01 07:43] LABS: ALANINE AMINOTRANSFERASE 521 U/L (12-78); ALBUMIN/GLOBULIN RATIO 0.6 (1.0-2.7); ANION GAP 9 mmol/L (5-15); ASPARTATE AMINO TRANSFERASE 379 U/L (15-37); CALCIUM 7.7 MG/DL (8.5-10.1); CARBON DIOXIDE 23 MMOL/L (21-32); CHLORIDE 104 MMOL/L (98-107); CREATININE 0.8 MG/DL (0.55-1.30); GLOMERULAR FILTRATION RATE > 60 mL/min (>60); POTASSIUM 3.8 MMOL/L (3.5-5.1); SODIUM 136 MMOL/L (136-145)
[2017-03-01 07:51] LABS: BILIRUBIN,DIRECT 0.6 MG/DL (0.0-0.3)
[2017-03-01 09:27] LABS: ANISOCYTOSIS 1+; BAND NEUTROPHILS % (MANUAL) 0 % (0-8); BASOPHILS % (MANUAL) 0 % (0-2); EOSINOPHILS % (MANUAL) 0 % (0-3); LYMPHOCYTES % (MANUAL) 21 % (20-45); NEUTROPHILS % (MANUAL) 72 % (45-75); PLATELET ESTIMATE DECREASED; PLATELET MORPHOLOGY NORMAL; TOTAL CELLS COUNTED 100
[2017-03-01] MEDS: Lisinopril 20mg tab ORAL SCH (09:33)
[2017-03-01] MEDS: Famotidine 20 MG/ 2ML VIAL IVP SCH (09:34)
--- NOTE | 2017-03-01 10:11 | Diagnostic Imaging Report ---
Indication:Abdominal pain Technique: Grayscale and duplex Doppler imaging of the abdomen performed. Comparison: None Findings: The liver is echogenic consistent fatty infiltration. Liver is enlarged measuring 20 cm. There is a focus of shadowing near the gallbladder neck possibly a stone. Patient was tender over this region suggestive of a positive sonographic Duke's. Please correlate clinically. Large body habitus precludes a good imaging of the retroperitoneum and other structures. There is color flow Doppler evidence of followup patency of the main portal vein. Kidneys are unremarkable bilaterally. There is no hydronephrosis or obvious stones. CBD 4.6 mm. Impression: Hepatomegaly with fatty infiltration. Possible gallstone. Please correlate clinically for cholecystitis. Limited evaluation due to body habitus.
--- NOTE | 2017-03-01 13:33 | Neurology Progress Note ---
Interim History Interim History ROS Limited/Unobtainable: No Complaints: unstable gait, need walker Objective Physical Exam Last Vital Signs Date Time Temp Pulse Resp B/P (MAP) Pulse Ox O2 Delivery O2 Flow Rate FiO2 03/01/17 12:00 97.8 74 18 122/79 98 03/01/17 04:00 Nasal Cannula 3.0 Laboratory Tests Test 03/01/17 06:20 White Blood Count 3.0 K/UL (4.8-10.8) L Red Blood Count 4.33 M/UL (4.20-5.40) Hemoglobin 12.3 G/DL (12.0-16.0) Hematocrit 37.2 % (37.0-47.0) Mean Corpuscular Volume 86 FL (80-99) Mean Corpuscular Hemoglobin 28.4 PG (27.0-31.0) Mean Corpuscular Hemoglobin Concent 33.1 G/DL (32.0-36.0) Red Cell Distribution Width 14.9 % (11.6-14.8) H Platelet Count 130 K/UL (150-450) L Mean Platelet Volume 9.3 FL (6.5-10.1) Neutrophils (%) (Auto) % (45.0-75.0) Lymphocytes (%) (Auto) % (20.0-45.0) Monocytes (%) (Auto) % (1.0-10.0) Eosinophils (%) (Auto) % (0.0-3.0) Basophils (%) (Auto) % (0.0-2.0) Differential Total Cells Counted 100 Neutrophils % (Manual) 72 % (45-75) Lymphocytes % (Manual) 21 % (20-45) Monocytes % (Manual) 7 % (1-10) Eosinophils % (Manual) 0 % (0-3) Basophils % (Manual) 0 % (0-2) Band Neutrophils 0 % (0-8) Platelet Estimate Decreased L Platelet Morphology Normal Anisocytosis 1+ Sodium Level 136 MMOL/L (136-145) Potassium Level 3.8 MMOL/L (3.5-5.1) Chloride Level 104 MMOL/L (98-107) Carbon Dioxide Level 23 MMOL/L (21-32) Anion Gap 9 mmol/L (5-15) Blood Urea Nitrogen 6 mg/dL (7-18) L Creatinine 0.8 MG/DL (0.55-1.30) Estimat Glomerular Filtration Rate > 60 mL/min (>60) Glucose Level 191 MG/DL (74-106) H Calcium Level 7.7 MG/DL (8.5-10.1) L Total Bilirubin 1.7 MG/DL (0.2-1.0) H Direct Bilirubin 0.6 MG/DL (0.0-0.3) H Aspartate Amino Transf (AST/SGOT) 379 U/L (15-37) H Alanine Aminotransferase (ALT/SGPT) 521 U/L (12-78) H Alkaline Phosphatase 152 U/L (46-116) H Total Protein 7.0 G/DL (6.4-8.2) Albumin 2.6 G/DL (3.4-5.0) L Globulin 4.4 g/dL Albumin/Globulin Ratio 0.6 (1.0-2.7) L General: well developed, no acute distress Head: atraumatic Neurologic Exam Mental Status: awake, alert, other - emotion labile Speech: normal speech, no dysarthia Language: normal language, no aphasia Cranial Nerve II: fundus normal, visual devries, no papilledema Cranial Nerves III, IV, : PERRLA, EOMI, pupils Cranial Nerve V: normal facial sensations, temporales function normal, masseters function normal, pterygoids function normal Cranial Nerve VII: no facial asymmetry, normal facial expressions Cranial Nerve VIII: normal hearing, no nystagmus Cranial Nerve IX: normal palate elevation, gag response Cranial Nerve X: no voice hoarseness Cranial Nerve XI: SCM symmetric, trapezii function normal Cranial Nerve XII: tongue midline, no tongue atrophy/fasciculations Motor System: normal muscle tone, strength 5/5, no involuntary movement, no muscle wasting Sensory: normal pinprick, normal light touch, normal position sense, normal graphesthesia Coordination: normal finger to nose bilaterally, normal heel to shah bilaterally, negative Romberg test Deep Tendon Reflexes: 2+ bicep (L), 2+ bicep (R), 2+ tricep (L), 2+ tricep (R) , 2+ brachioradialis (L), 2+ brachioradialis (R), 2+ knee (L), 2+ knee (R), 2+ ankle (L), 2+ ankle (R) Stance: normal Gait: stable, normal regular, heel + toe gait, other - wabbly Impression/Recommendations Problems: (1) acute L leg pulsy (2) Shock liver (3) Alcoholic hepatitis (4) Acute alcoholic pancreatitis Status: stable, progressing Recommendations # [id number] stat MRI ls spine,done Steroids will d/c 2/2 improvement pt/ot NIR MASON Mar 01, 2017 13:33
--- NOTE | 2017-03-01 17:53 | General Progress Note ---
Assessment/Plan Problem List: (1) Abdominal pain ICD Codes: R10.9 - Unspecified abdominal pain SNOMED: 83890255 Qualifiers: Qualified Codes: R10.11 - Right upper quadrant pain (2) Abnormal LFTs ICD Codes: R79.89 - Other specified abnormal findings of blood chemistry SNOMED: 892698763 (3) Shock liver ICD Codes: K72.00 - Acute and subacute hepatic failure without coma SNOMED: 276298337 Status: progressing Assessment/Plan afebrile elev lft abdominal pain present reviewed chart and labs vitals stable Subjective Gastrointestinal/Abdominal: Reports: abdominal pain Allergies: Coded Allergies: No Known Allergies (Unverified , 02/27/17) Objective Last 24 Hour Vital Signs Date Time Temp Pulse Resp B/P (MAP) Pulse Ox O2 Delivery O2 Flow Rate FiO2 03/01/17 16:00 98.3 81 18 128/86 100 03/01/17 12:00 97.8 74 18 122/79 98 03/01/17 09:34 82 110/70 03/01/17 09:33 110/70 03/01/17 08:00 98.1 82 18 126/83 99 03/01/17 04:00 98.1 70 18 110/70 99 Nasal Cannula 3.0 03/01/17 00:00 98.2 68 20 111/73 100 Nasal Cannula 3.0 02/28/17 20:00 97.1 68 18 124/74 100 Nasal Cannula 3.0 Laboratory Tests 03/01/17 06:20: White Blood Count 3.0L, Red Blood Count 4.33, Hemoglobin 12.3, Hematocrit 37.2, Mean Corpuscular Volume 86, Mean Corpuscular Hemoglobin 28.4, Mean Corpuscular Hemoglobin Concent 33.1, Red Cell Distribution Width 14.9H, Platelet Count 130L , Mean Platelet Volume 9.3, Neutrophils (%) (Auto) , Lymphocytes (%) (Auto) , Monocytes (%) (Auto) , Eosinophils (%) (Auto) , Basophils (%) (Auto) , Differential Total Cells Counted 100, Neutrophils % (Manual) 72, Lymphocytes % ( Manual) 21, Monocytes % (Manual) 7, Eosinophils % (Manual) 0, Basophils % ( Manual) 0, Band Neutrophils 0, Platelet Estimate DecreasedL, Platelet Morphology Normal, Anisocytosis 1+, Sodium Level 136, Potassium Level 3.8, Chloride Level 104, Carbon Dioxide Level 23, Anion Gap 9, Blood Urea Nitrogen 6L , Creatinine 0.8, Estimat Glomerular Filtration Rate > 60, Glucose Level 191H, Calcium Level 7.7L, Total Bilirubin 1.7H, Direct Bilirubin 0.6H, Aspartate Amino Transf (AST/SGOT) 379H, Alanine Aminotransferase (ALT/SGPT) 521H, Alkaline Phosphatase 152H, Total Protein 7.0, Albumin 2.6L, Globulin 4.4, Albumin/Globulin Ratio 0.6L Height (Feet): 5 Height (Inches): 0.00 Weight (Pounds): 140 Ruben Padron MD Mar 01, 2017 17:53
--- NOTE | 2017-03-01 18:28 | General Progress Note ---
Assessment/Plan Status: stable Assessment/Plan Status; abd pain- fatty liver and GSs: Alcoholic Hepatitis and Pancreatitis HTN DM Etoh abuse Plan: Per consultants- K supplement abnormal LFTs monitor BP and renal parameters Subjective ROS Limited/Unobtainable: No Constitutional: Reports: malaise Allergies: Coded Allergies: No Known Allergies (Unverified , 02/27/17) Objective Last 24 Hour Vital Signs Date Time Temp Pulse Resp B/P (MAP) Pulse Ox O2 Delivery O2 Flow Rate FiO2 03/01/17 16:00 98.3 81 18 128/86 100 03/01/17 12:00 97.8 74 18 122/79 98 03/01/17 09:34 82 110/70 03/01/17 09:33 110/70 03/01/17 08:00 98.1 82 18 126/83 99 03/01/17 04:00 98.1 70 18 110/70 99 Nasal Cannula 3.0 03/01/17 00:00 98.2 68 20 111/73 100 Nasal Cannula 3.0 02/28/17 20:00 97.1 68 18 124/74 100 Nasal Cannula 3.0 Laboratory Tests 03/01/17 06:20: White Blood Count 3.0L, Red Blood Count 4.33, Hemoglobin 12.3, Hematocrit 37.2, Mean Corpuscular Volume 86, Mean Corpuscular Hemoglobin 28.4, Mean Corpuscular Hemoglobin Concent 33.1, Red Cell Distribution Width 14.9H, Platelet Count 130L , Mean Platelet Volume 9.3, Neutrophils (%) (Auto) , Lymphocytes (%) (Auto) , Monocytes (%) (Auto) , Eosinophils (%) (Auto) , Basophils (%) (Auto) , Differential Total Cells Counted 100, Neutrophils % (Manual) 72, Lymphocytes % ( Manual) 21, Monocytes % (Manual) 7, Eosinophils % (Manual) 0, Basophils % ( Manual) 0, Band Neutrophils 0, Platelet Estimate DecreasedL, Platelet Morphology Normal, Anisocytosis 1+, Sodium Level 136, Potassium Level 3.8, Chloride Level 104, Carbon Dioxide Level 23, Anion Gap 9, Blood Urea Nitrogen 6L , Creatinine 0.8, Estimat Glomerular Filtration Rate > 60, Glucose Level 191H, Calcium Level 7.7L, Total Bilirubin 1.7H, Direct Bilirubin 0.6H, Aspartate Amino Transf (AST/SGOT) 379H, Alanine Aminotransferase (ALT/SGPT) 521H, Alkaline Phosphatase 152H, Total Protein 7.0, Albumin 2.6L, Globulin 4.4, Albumin/Globulin Ratio 0.6L Height (Feet): 5 Height (Inches): 0.00 Weight (Pounds): 140 General Appearance: no apparent distress Objective no other change ANTONIA EDMONDSON Mar 01, 2017 18:28
--- NOTE | 2017-03-01 20:39 | General Progress Note ---
Assessment/Plan Status: doing well, stable, progressing Subjective Date patient seen: Mar 01, 2017 Neurologic/Psychiatric: Reports: anxiety, depressed, emotional problems Allergies: Coded Allergies: No Known Allergies (Unverified , 02/27/17) Objective Last 24 Hour Vital Signs Date Time Temp Pulse Resp B/P (MAP) Pulse Ox O2 Delivery O2 Flow Rate FiO2 03/01/17 16:00 98.3 81 18 128/86 100 03/01/17 12:00 97.8 74 18 122/79 98 03/01/17 09:34 82 110/70 03/01/17 09:33 110/70 03/01/17 08:00 98.1 82 18 126/83 99 03/01/17 04:00 98.1 70 18 110/70 99 Nasal Cannula 3.0 03/01/17 00:00 98.2 68 20 111/73 100 Nasal Cannula 3.0 Laboratory Tests 03/01/17 06:20: White Blood Count 3.0L, Red Blood Count 4.33, Hemoglobin 12.3, Hematocrit 37.2, Mean Corpuscular Volume 86, Mean Corpuscular Hemoglobin 28.4, Mean Corpuscular Hemoglobin Concent 33.1, Red Cell Distribution Width 14.9H, Platelet Count 130L , Mean Platelet Volume 9.3, Neutrophils (%) (Auto) , Lymphocytes (%) (Auto) , Monocytes (%) (Auto) , Eosinophils (%) (Auto) , Basophils (%) (Auto) , Differential Total Cells Counted 100, Neutrophils % (Manual) 72, Lymphocytes % ( Manual) 21, Monocytes % (Manual) 7, Eosinophils % (Manual) 0, Basophils % ( Manual) 0, Band Neutrophils 0, Platelet Estimate DecreasedL, Platelet Morphology Normal, Anisocytosis 1+, Sodium Level 136, Potassium Level 3.8, Chloride Level 104, Carbon Dioxide Level 23, Anion Gap 9, Blood Urea Nitrogen 6L , Creatinine 0.8, Estimat Glomerular Filtration Rate > 60, Glucose Level 191H, Calcium Level 7.7L, Total Bilirubin 1.7H, Direct Bilirubin 0.6H, Aspartate Amino Transf (AST/SGOT) 379H, Alanine Aminotransferase (ALT/SGPT) 521H, Alkaline Phosphatase 152H, Total Protein 7.0, Albumin 2.6L, Globulin 4.4, Albumin/Globulin Ratio 0.6L Height (Feet): 5 Height (Inches): 0.00 Weight (Pounds): 140 General Appearance: no apparent distress, alert Neurologic: alert, oriented x 3, responsive, depressed affect Hilario Parra M.D. Mar 01, 2017 20:39
[2017-03-01] MEDS: TraZODone 50mg tab ORAL SCH (21:34)
[2017-03-01] MEDS: NS w/KCl 40mEq 1,000 ML IV SCH (21:37)
[2017-03-02 04:00] VITALS: BP 132/88
[2017-03-02] MEDS: NovoLOG Insulin Flexpen SUBQ SCH ×4 (06:25→20:09)
[2017-03-02 07:59] LABS: BASOPHILS % (AUTO) 0.2 % (0.0-2.0); LYMPHOCYTES % (AUTO) 10.9 % (20.0-45.0); MEAN CORPUSCULAR HEMOGLOBIN 28.7 PG (27.0-31.0); MEAN CORPUSCULAR HGB CONC 33.2 G/DL (32.0-36.0); MEAN CORPUSCULAR VOLUME 86 FL (80-99); MEAN PLATELET VOLUME 7.7 FL (6.5-10.1); NEUTROPHILS % (AUTO) 82.9 % (45.0-75.0); PLATELET COUNT 119 K/UL (150-450); RED BLOOD COUNT 4.18 M/UL (4.20-5.40); RED CELL DISTRIBUTION WIDTH 14.8 % (11.6-14.8); WHITE BLOOD COUNT 9.6 K/UL (4.8-10.8)
[2017-03-02 08:00] VITALS: BP 126/81
[2017-03-02 08:38] LABS: ALANINE AMINOTRANSFERASE 389 U/L (12-78); ALBUMIN/GLOBULIN RATIO 0.7 (1.0-2.7); ANION GAP 9 mmol/L (5-15); ASPARTATE AMINO TRANSFERASE 201 U/L (15-37); CALCIUM 8.1 MG/DL (8.5-10.1); CARBON DIOXIDE 23 MMOL/L (21-32); CHLORIDE 107 MMOL/L (98-107); CREATININE 0.7 MG/DL (0.55-1.30); GLOMERULAR FILTRATION RATE > 60 mL/min (>60); SODIUM 139 MMOL/L (136-145); TOTAL PROTEIN 6.8 G/DL (6.4-8.2)
[2017-03-02 08:39] LABS: BILIRUBIN,DIRECT 0.6 MG/DL (0.0-0.3)
[2017-03-02] MEDS: Lisinopril 20mg tab ORAL SCH (09:00)
[2017-03-02 10:18] LABS: MAGNESIUM 1.7 MG/DL (1.8-2.4); PHOSPHORUS 3.1 MG/DL (2.5-4.9); URIC ACID 5.4 MG/DL (2.6-7.2)
--- NOTE | 2017-03-02 10:58 | GI Progress Note ---
Assessment/Plan Problems: (1) Acute alcoholic pancreatitis ICD Codes: K85.20 - Alcohol induced acute pancreatitis without necrosis or infection SNOMED: 703741442 (2) Alcoholic hepatitis ICD Codes: K70.10 - Alcoholic hepatitis without ascites SNOMED: 993499729 (3) Abdominal pain ICD Codes: R10.9 - Unspecified abdominal pain SNOMED: 21933748 Qualifiers: Qualified Codes: R10.11 - Right upper quadrant pain (4) Abnormal LFTs ICD Codes: R79.89 - Other specified abnormal findings of blood chemistry SNOMED: 842943066 (5) Shock liver ICD Codes: K72.00 - Acute and subacute hepatic failure without coma SNOMED: 080109590 Status: stable Status Narrative Discussed with Dr. Lake. Assessment/Plan MRCP reviewed >> Essentially nondiagnostic exam. abdominal U/S reviewed >> Hepatomegaly with fatty infiltration. Possible gallstone. elevated LFTs most likely 2/2 to shock liver unknown etiology >> resolving utox unremarkable lipase now normal elevated GGT hep panel >> negative patient admits being depressed and abusing ETOH okay for DC per GI standpoint adv to soft diet today pain mgmt bowel regime ppi repeat LFTs >> downtrending fu labs Subjective Subjective abdominal pain improved Objective Last 24 Hour Vital Signs Date Time Temp Pulse Resp B/P (MAP) Pulse Ox O2 Delivery O2 Flow Rate FiO2 03/02/17 09:00 126/81 03/02/17 09:00 84 126/81 03/02/17 08:00 97.9 84 20 126/81 97 Room Air 03/02/17 04:00 97.8 74 20 132/88 99 Room Air 03/01/17 23:13 97.9 78 20 124/83 98 Room Air 03/01/17 20:00 97.4 84 18 128/90 99 03/01/17 16:00 98.3 81 18 128/86 100 03/01/17 12:00 97.8 74 18 122/79 98 Laboratory Tests Test 03/02/17 07:05 White Blood Count 9.6 K/UL (4.8-10.8) # Red Blood Count 4.18 M/UL (4.20-5.40) L Hemoglobin 12.0 G/DL (12.0-16.0) Hematocrit 36.1 % (37.0-47.0) L Mean Corpuscular Volume 86 FL (80-99) Mean Corpuscular Hemoglobin 28.7 PG (27.0-31.0) Mean Corpuscular Hemoglobin Concent 33.2 G/DL (32.0-36.0) Red Cell Distribution Width 14.8 % (11.6-14.8) Platelet Count 119 K/UL (150-450) L Mean Platelet Volume 7.7 FL (6.5-10.1) Neutrophils (%) (Auto) 82.9 % (45.0-75.0) H Lymphocytes (%) (Auto) 10.9 % (20.0-45.0) L Monocytes (%) (Auto) 6.0 % (1.0-10.0) Eosinophils (%) (Auto) 0.0 % (0.0-3.0) Basophils (%) (Auto) 0.2 % (0.0-2.0) Sodium Level 139 MMOL/L (136-145) Potassium Level 4.0 MMOL/L (3.5-5.1) Chloride Level 107 MMOL/L (98-107) Carbon Dioxide Level 23 MMOL/L (21-32) Anion Gap 9 mmol/L (5-15) Blood Urea Nitrogen 8 mg/dL (7-18) Creatinine 0.7 MG/DL (0.55-1.30) Estimat Glomerular Filtration Rate > 60 mL/min (>60) Glucose Level 172 MG/DL (74-106) H Uric Acid 5.4 MG/DL (2.6-7.2) Calcium Level 8.1 MG/DL (8.5-10.1) L Phosphorus Level 3.1 MG/DL (2.5-4.9) Magnesium Level 1.7 MG/DL (1.8-2.4) L Total Bilirubin 1.3 MG/DL (0.2-1.0) H Direct Bilirubin 0.6 MG/DL (0.0-0.3) H Gamma Glutamyl Transpeptidase 786 U/L (5-85) H Aspartate Amino Transf (AST/SGOT) 201 U/L (15-37) H Alanine Aminotransferase (ALT/SGPT) 389 U/L (12-78) H Alkaline Phosphatase 153 U/L (46-116) H Total Creatine Kinase 52 U/L (26-308) Total Protein 6.8 G/DL (6.4-8.2) Albumin 2.7 G/DL (3.4-5.0) L Globulin 4.1 g/dL Albumin/Globulin Ratio 0.7 (1.0-2.7) L Lipase 207 U/L (73-393) Height (Feet): 5 Height (Inches): 0.00 Weight (Pounds): 140 General Appearance: WD/WN, no apparent distress, alert, overweight Cardiovascular: normal rate Respiratory/Chest: normal breath sounds, no respiratory distress Abdominal Exam: normal bowel sounds, non tender, soft Extremities: normal range of motion, non-tender Sharon Sherman N.P. Mar 02, 2017 10:58
[2017-03-02] MEDS: NS w/KCl 40mEq 1,000 ML IV SCH (11:05)
--- NOTE | 2017-03-02 11:14 | General Progress Note ---
Assessment/Plan Problem List: (1) Abdominal pain ICD Codes: R10.9 - Unspecified abdominal pain SNOMED: 71571363 Qualifiers: Qualified Codes: R10.11 - Right upper quadrant pain (2) Abnormal LFTs ICD Codes: R79.89 - Other specified abnormal findings of blood chemistry SNOMED: 196737055 (3) Shock liver ICD Codes: K72.00 - Acute and subacute hepatic failure without coma SNOMED: 350481674 Assessment/Plan lft elevation is improving will discuss w gi re findings reviewed chart and labs vitals stable Subjective Gastrointestinal/Abdominal: Reports: abdominal pain Allergies: Coded Allergies: No Known Allergies (Unverified , 02/27/17) Objective Last 24 Hour Vital Signs Date Time Temp Pulse Resp B/P (MAP) Pulse Ox O2 Delivery O2 Flow Rate FiO2 03/02/17 09:00 126/81 03/02/17 09:00 84 126/81 03/02/17 08:00 97.9 84 20 126/81 97 Room Air 03/02/17 04:00 97.8 74 20 132/88 99 Room Air 03/01/17 23:13 97.9 78 20 124/83 98 Room Air 03/01/17 20:00 97.4 84 18 128/90 99 03/01/17 16:00 98.3 81 18 128/86 100 03/01/17 12:00 97.8 74 18 122/79 98 Laboratory Tests 03/02/17 07:05: White Blood Count 9.6#, Red Blood Count 4.18L, Hemoglobin 12.0, Hematocrit 36.1L , Mean Corpuscular Volume 86, Mean Corpuscular Hemoglobin 28.7, Mean Corpuscular Hemoglobin Concent 33.2, Red Cell Distribution Width 14.8, Platelet Count 119L, Mean Platelet Volume 7.7, Neutrophils (%) (Auto) 82.9H, Lymphocytes (%) (Auto) 10.9L, Monocytes (%) (Auto) 6.0, Eosinophils (%) (Auto) 0.0, Basophils (%) (Auto) 0.2, Sodium Level 139, Potassium Level 4.0, Chloride Level 107, Carbon Dioxide Level 23, Anion Gap 9, Blood Urea Nitrogen 8, Creatinine 0.7 , Estimat Glomerular Filtration Rate > 60, Glucose Level 172H, Uric Acid 5.4, Calcium Level 8.1L, Phosphorus Level 3.1, Magnesium Level 1.7L, Total Bilirubin 1.3H, Direct Bilirubin 0.6H, Gamma Glutamyl Transpeptidase 786H, Aspartate Amino Transf (AST/SGOT) 201H, Alanine Aminotransferase (ALT/SGPT) 389H, Alkaline Phosphatase 153H, Total Creatine Kinase 52, Total Protein 6.8, Albumin 2.7L, Globulin 4.1, Albumin/Globulin Ratio 0.7L, Lipase 207 Height (Feet): 5 Height (Inches): 0.00 Weight (Pounds): 140 Neck: supple Cardiovascular: normal rate Respiratory/Chest: lungs clear Abdomen: tender Ruben Padron MD Mar 02, 2017 11:14
[2017-03-02 12:00] VITALS: BP 119/74
--- NOTE | 2017-03-02 15:26 | General Progress Note ---
Assessment/Plan Status: stable Assessment/Plan Status; abd pain- fatty liver and GSs: Alcoholic Hepatitis and Pancreatitis HTN DM Etoh abuse Plan: Per consultants- K supplement abnormal LFTs monitor BP and renal parameters Subjective ROS Limited/Unobtainable: No Allergies: Coded Allergies: No Known Allergies (Unverified , 02/27/17) Objective Last 24 Hour Vital Signs Date Time Temp Pulse Resp B/P (MAP) Pulse Ox O2 Delivery O2 Flow Rate FiO2 03/02/17 12:00 97.5 78 20 119/74 100 Room Air 03/02/17 09:00 126/81 03/02/17 09:00 84 126/81 03/02/17 08:00 97.9 84 20 126/81 97 Room Air 03/02/17 04:00 97.8 74 20 132/88 99 Room Air 03/01/17 23:13 97.9 78 20 124/83 98 Room Air 03/01/17 20:00 97.4 84 18 128/90 99 03/01/17 16:00 98.3 81 18 128/86 100 Intake and Output 03/02/17 03/03/17 19:00 07:00 # Bowel Movements 1 Laboratory Tests 03/02/17 07:05: White Blood Count 9.6#, Red Blood Count 4.18L, Hemoglobin 12.0, Hematocrit 36.1L , Mean Corpuscular Volume 86, Mean Corpuscular Hemoglobin 28.7, Mean Corpuscular Hemoglobin Concent 33.2, Red Cell Distribution Width 14.8, Platelet Count 119L, Mean Platelet Volume 7.7, Neutrophils (%) (Auto) 82.9H, Lymphocytes (%) (Auto) 10.9L, Monocytes (%) (Auto) 6.0, Eosinophils (%) (Auto) 0.0, Basophils (%) (Auto) 0.2, Sodium Level 139, Potassium Level 4.0, Chloride Level 107, Carbon Dioxide Level 23, Anion Gap 9, Blood Urea Nitrogen 8, Creatinine 0.7 , Estimat Glomerular Filtration Rate > 60, Glucose Level 172H, Uric Acid 5.4, Calcium Level 8.1L, Phosphorus Level 3.1, Magnesium Level 1.7L, Total Bilirubin 1.3H, Direct Bilirubin 0.6H, Gamma Glutamyl Transpeptidase 786H, Aspartate Amino Transf (AST/SGOT) 201H, Alanine Aminotransferase (ALT/SGPT) 389H, Alkaline Phosphatase 153H, Total Creatine Kinase 52, Total Protein 6.8, Albumin 2.7L, Globulin 4.1, Albumin/Globulin Ratio 0.7L, Lipase 207 Height (Feet): 5 Height (Inches): 0.00 Weight (Pounds): 140 General Appearance: no apparent distress Objective no other change ANTONIA EDMONDSON Mar 02, 2017 15:26
[2017-03-02 16:00] VITALS: BP 114/82
--- NOTE | 2017-03-02 17:55 | Neurology Progress Note ---
Interim History Interim History ROS Limited/Unobtainable: No Complaints: pain numbness BLE Events: stable Objective Physical Exam Last Vital Signs Date Time Temp Pulse Resp B/P (MAP) Pulse Ox O2 Delivery O2 Flow Rate FiO2 03/02/17 16:00 97.8 71 18 114/82 99 Room Air 03/01/17 04:00 3.0 Laboratory Tests Test 03/02/17 07:05 White Blood Count 9.6 K/UL (4.8-10.8) # Red Blood Count 4.18 M/UL (4.20-5.40) L Hemoglobin 12.0 G/DL (12.0-16.0) Hematocrit 36.1 % (37.0-47.0) L Mean Corpuscular Volume 86 FL (80-99) Mean Corpuscular Hemoglobin 28.7 PG (27.0-31.0) Mean Corpuscular Hemoglobin Concent 33.2 G/DL (32.0-36.0) Red Cell Distribution Width 14.8 % (11.6-14.8) Platelet Count 119 K/UL (150-450) L Mean Platelet Volume 7.7 FL (6.5-10.1) Neutrophils (%) (Auto) 82.9 % (45.0-75.0) H Lymphocytes (%) (Auto) 10.9 % (20.0-45.0) L Monocytes (%) (Auto) 6.0 % (1.0-10.0) Eosinophils (%) (Auto) 0.0 % (0.0-3.0) Basophils (%) (Auto) 0.2 % (0.0-2.0) Sodium Level 139 MMOL/L (136-145) Potassium Level 4.0 MMOL/L (3.5-5.1) Chloride Level 107 MMOL/L (98-107) Carbon Dioxide Level 23 MMOL/L (21-32) Anion Gap 9 mmol/L (5-15) Blood Urea Nitrogen 8 mg/dL (7-18) Creatinine 0.7 MG/DL (0.55-1.30) Estimat Glomerular Filtration Rate > 60 mL/min (>60) Glucose Level 172 MG/DL (74-106) H Uric Acid 5.4 MG/DL (2.6-7.2) Calcium Level 8.1 MG/DL (8.5-10.1) L Phosphorus Level 3.1 MG/DL (2.5-4.9) Magnesium Level 1.7 MG/DL (1.8-2.4) L Total Bilirubin 1.3 MG/DL (0.2-1.0) H Direct Bilirubin 0.6 MG/DL (0.0-0.3) H Gamma Glutamyl Transpeptidase 786 U/L (5-85) H Aspartate Amino Transf (AST/SGOT) 201 U/L (15-37) H Alanine Aminotransferase (ALT/SGPT) 389 U/L (12-78) H Alkaline Phosphatase 153 U/L (46-116) H Total Creatine Kinase 52 U/L (26-308) Total Protein 6.8 G/DL (6.4-8.2) Albumin 2.7 G/DL (3.4-5.0) L Globulin 4.1 g/dL Albumin/Globulin Ratio 0.7 (1.0-2.7) L Lipase 207 U/L (73-393) General: well developed, no acute distress Head: atraumatic Neurologic Exam Mental Status: awake, alert, other - anxious Speech: normal speech, no dysarthia Language: normal language, no aphasia Cranial Nerve II: fundus normal, visual devries, no papilledema Cranial Nerves III, IV, : PERRLA, EOMI, pupils Cranial Nerve V: normal facial sensations, temporales function normal, masseters function normal, pterygoids function normal Cranial Nerve VII: no facial asymmetry, normal facial expressions Cranial Nerve VIII: normal hearing, no nystagmus Cranial Nerve IX: normal palate elevation, gag response Cranial Nerve X: no voice hoarseness Cranial Nerve XI: SCM symmetric, trapezii function normal Cranial Nerve XII: tongue midline, no tongue atrophy/fasciculations Motor System: normal muscle tone, strength 5/5, no involuntary movement, no muscle wasting Sensory: normal pinprick, normal light touch, normal position sense, normal graphesthesia Coordination: normal finger to nose bilaterally, normal heel to shah bilaterally, negative Romberg test Deep Tendon Reflexes: 0 bicep (L), 0 bicep (R), 0 tricep (L), 0 tricep (R), 0 brachioradialis (L), 0 brachioradialis (R), 0 knee (L), 0 knee (R), 0 ankle (L) , 0 ankle (R) Reflexes: flexor plantar (L), flexor plantar (R) Stance: normal Gait: stable, normal regular, heel + toe gait, other Impression/Recommendations Problems: (1) Polyneuropathy, alcoholic (2) Shock liver (3) Alcoholic hepatitis (4) Acute alcoholic pancreatitis Status: stable Recommendations # [id number] stat MRI ls spine,done Steroids will d/c 2/2 improvement pt/ot neurontin 100mg tid NIR MASON Mar 02, 2017 17:55
[2017-03-02 20:00] VITALS: BP 141/89
[2017-03-02] MEDS: TraZODone 50mg tab ORAL SCH (20:09)
--- NOTE | 2017-03-02 22:42 | Infectious Diseases Prog Note ---
Assessment/Plan Problems: (1) Abnormal LFTs Assessment & Plan: Acute hepatitis panel negative. Follow-up hepatobiliary studies. (2) Abdominal pain Assessment & Plan: Acute gastroenteritis? Supportive rx. Hold off on antibiotics. Subjective Allergies: Coded Allergies: No Known Allergies (Unverified , 02/27/17) Objective Vital Signs Last 24 Hour Vital Signs Date Time Temp Pulse Resp B/P (MAP) Pulse Ox O2 Delivery O2 Flow Rate FiO2 03/02/17 20:00 97.4 60 18 141/89 99 Room Air 03/02/17 16:00 97.8 71 18 114/82 99 Room Air 03/02/17 12:00 97.5 78 20 119/74 100 Room Air 03/02/17 09:00 126/81 03/02/17 09:00 84 126/81 03/02/17 08:00 97.9 84 20 126/81 97 Room Air 03/02/17 04:00 97.8 74 20 132/88 99 Room Air 03/01/17 23:13 97.9 78 20 124/83 98 Room Air Height (Feet): 5 Height (Inches): 0.00 Weight (Pounds): 140 Laboratory Tests Test 03/02/17 07:05 White Blood Count 9.6 K/UL (4.8-10.8) # Red Blood Count 4.18 M/UL (4.20-5.40) L Hemoglobin 12.0 G/DL (12.0-16.0) Hematocrit 36.1 % (37.0-47.0) L Mean Corpuscular Volume 86 FL (80-99) Mean Corpuscular Hemoglobin 28.7 PG (27.0-31.0) Mean Corpuscular Hemoglobin Concent 33.2 G/DL (32.0-36.0) Red Cell Distribution Width 14.8 % (11.6-14.8) Platelet Count 119 K/UL (150-450) L Mean Platelet Volume 7.7 FL (6.5-10.1) Neutrophils (%) (Auto) 82.9 % (45.0-75.0) H Lymphocytes (%) (Auto) 10.9 % (20.0-45.0) L Monocytes (%) (Auto) 6.0 % (1.0-10.0) Eosinophils (%) (Auto) 0.0 % (0.0-3.0) Basophils (%) (Auto) 0.2 % (0.0-2.0) Sodium Level 139 MMOL/L (136-145) Potassium Level 4.0 MMOL/L (3.5-5.1) Chloride Level 107 MMOL/L (98-107) Carbon Dioxide Level 23 MMOL/L (21-32) Anion Gap 9 mmol/L (5-15) Blood Urea Nitrogen 8 mg/dL (7-18) Creatinine 0.7 MG/DL (0.55-1.30) Estimat Glomerular Filtration Rate > 60 mL/min (>60) Glucose Level 172 MG/DL (74-106) H Uric Acid 5.4 MG/DL (2.6-7.2) Calcium Level 8.1 MG/DL (8.5-10.1) L Phosphorus Level 3.1 MG/DL (2.5-4.9) Magnesium Level 1.7 MG/DL (1.8-2.4) L Total Bilirubin 1.3 MG/DL (0.2-1.0) H Direct Bilirubin 0.6 MG/DL (0.0-0.3) H Gamma Glutamyl Transpeptidase 786 U/L (5-85) H Aspartate Amino Transf (AST/SGOT) 201 U/L (15-37) H Alanine Aminotransferase (ALT/SGPT) 389 U/L (12-78) H Alkaline Phosphatase 153 U/L (46-116) H Total Creatine Kinase 52 U/L (26-308) Total Protein 6.8 G/DL (6.4-8.2) Albumin 2.7 G/DL (3.4-5.0) L Globulin 4.1 g/dL Albumin/Globulin Ratio 0.7 (1.0-2.7) L Lipase 207 U/L (73-393) Current Medications Medications (Trade) Dose Ordered Sig/Giovanni Route PRN Reason Start Time Stop Time Status Last Admin Dose Admin Atenolol (Tenormin) 50 mg DAILY ORAL 02/28/17 09:00 03/30/17 08:59 03/02/17 09:00 Dextrose (Dextrose 50%) STAT PRN IV Hypoglycemia 02/27/17 22:15 03/29/17 22:14 Fluoxetine HCl (PROzac) 20 mg DAILY ORAL 03/01/17 09:00 03/31/17 08:59 03/02/17 09:07 Gabapentin (Neurontin) 300 mg THREE TIMES A DAY ORAL 02/28/17 09:00 03/30/17 08:59 03/02/17 17:02 Hydromorphone HCl (Dilaudid) 0.5 mg Q4H PRN IVP PAIN 4-10 02/28/17 13:00 03/07/17 12:59 03/01/17 01:54 Insulin Aspart (NovoLOG) BEFORE MEALS AND HS SUBQ 02/28/17 06:30 03/30/17 06:29 03/02/17 20:09 Lansoprazole (Prevacid) 30 mg DAILY ORAL 03/02/17 09:00 04/01/17 08:59 03/02/17 08:57 Lisinopril (Prinivil) 20 mg DAILY ORAL 02/28/17 09:00 03/30/17 08:59 03/02/17 09:00 Ondansetron HCl (Zofran) 4 mg Q6H PRN IVP Nausea & Vomiting 02/27/17 15:00 03/29/17 14:59 03/02/17 13:15 Trazodone HCl (Desyrel) 50 mg BEDTIME ORAL 03/01/17 21:00 03/31/17 20:59 03/02/17 20:09 ZAMZAM AMBROSE Mar 02, 2017 22:42
[2017-03-03] VITALS: BP 100/65
[2017-03-03 04:00] VITALS: BP 116/81
[2017-03-03] MEDS: NovoLOG Insulin Flexpen SUBQ SCH ×4 (06:36→21:07)
--- NOTE | 2017-03-03 07:48 | General Progress Note ---
Progress Note Progress Note Pt had been admitted to hospital with abdominal pain after etoh excess. with elevated lipase and liver function tests. CT scan had suggested possible gallstone vs calcification of gallbladder so we were asked to evaluate for same ' MRI of abdomen was nondiagnostic. Pt s abdominal pain has relsolved. lfts and lipase improving. At this point there is little to suggest that gallstones contributing to her clinical picture, and her resolving problem is most likely secondary only to acutre alcohol excess. Will follow peripherally SHER MERCADO Mar 03, 2017 07:48
[2017-03-03 08:02] LABS: BASOPHILS % (AUTO) 0.8 % (0.0-2.0); EOSINOPHILS % (AUTO) 1.6 % (0.0-3.0); LYMPHOCYTES % (AUTO) 27.7 % (20.0-45.0); MEAN CORPUSCULAR HEMOGLOBIN 28.4 PG (27.0-31.0); MEAN CORPUSCULAR HGB CONC 32.6 G/DL (32.0-36.0); MEAN CORPUSCULAR VOLUME 87 FL (80-99); MEAN PLATELET VOLUME 8.6 FL (6.5-10.1); MONOCYTES % (AUTO) 10.6 % (1.0-10.0); NEUTROPHILS % (AUTO) 59.4 % (45.0-75.0); PLATELET COUNT 108 K/UL (150-450); RED BLOOD COUNT 4.12 M/UL (4.20-5.40); RED CELL DISTRIBUTION WIDTH 15.3 % (11.6-14.8); WHITE BLOOD COUNT 5.7 K/UL (4.8-10.8)
[2017-03-03 08:14] LABS: ALANINE AMINOTRANSFERASE 299 U/L (12-78); ALBUMIN/GLOBULIN RATIO 0.6 (1.0-2.7); ANION GAP 9 mmol/L (5-15); ASPARTATE AMINO TRANSFERASE 194 U/L (15-37); CARBON DIOXIDE 24 MMOL/L (21-32); CHLORIDE 107 MMOL/L (98-107); CREATININE 0.7 MG/DL (0.55-1.30); GLOMERULAR FILTRATION RATE > 60 mL/min (>60); POTASSIUM 3.6 MMOL/L (3.5-5.1); SODIUM 140 MMOL/L (136-145); TOTAL PROTEIN 6.4 G/DL (6.4-8.2)
[2017-03-03 08:25] VITALS: BP 113/64
[2017-03-03] MEDS: Lisinopril 20mg tab ORAL SCH (09:02)
--- NOTE | 2017-03-03 11:30 | General Progress Note ---
Assessment/Plan Problem List: (1) Abdominal pain ICD Codes: R10.9 - Unspecified abdominal pain SNOMED: 97727401 Qualifiers: Qualified Codes: R10.11 - Right upper quadrant pain (2) Alcoholic hepatitis ICD Codes: K70.10 - Alcoholic hepatitis without ascites SNOMED: 178801796 (3) Acute alcoholic pancreatitis ICD Codes: K85.20 - Alcohol induced acute pancreatitis without necrosis or infection SNOMED: 370671828 (4) Abnormal LFTs ICD Codes: R79.89 - Other specified abnormal findings of blood chemistry SNOMED: 229594180 (5) acute L leg pulsy (6) Shock liver ICD Codes: K72.00 - Acute and subacute hepatic failure without coma SNOMED: 935902128 (7) r/o acute lumbar sacral plexopthy (8) Polyneuropathy, alcoholic ICD Codes: G62.1 - Alcoholic polyneuropathy SNOMED: 0029240 Status: stable, progressing Assessment/Plan pain control abx prn gi f/u cbc bmp am Subjective Constitutional: Reports: weakness Allergies: Coded Allergies: No Known Allergies (Unverified , 02/27/17) All Systems: reviewed and negative except above Subjective sleepy calm Objective Last 24 Hour Vital Signs Date Time Temp Pulse Resp B/P (MAP) Pulse Ox O2 Delivery O2 Flow Rate FiO2 03/03/17 09:03 68 113/64 03/03/17 09:02 113/64 03/03/17 08:25 97.6 68 20 113/64 98 Room Air 03/03/17 04:00 97.7 60 17 116/81 97 Room Air 03/03/17 00:00 98.0 68 18 100/65 97 Room Air 03/02/17 20:00 97.4 60 18 141/89 99 Room Air 03/02/17 16:00 97.8 71 18 114/82 99 Room Air 03/02/17 12:00 97.5 78 20 119/74 100 Room Air Laboratory Tests 03/03/17 06:40: White Blood Count 5.7, Red Blood Count 4.12L, Hemoglobin 11.7L, Hematocrit 35.8L , Mean Corpuscular Volume 87, Mean Corpuscular Hemoglobin 28.4, Mean Corpuscular Hemoglobin Concent 32.6, Red Cell Distribution Width 15.3H, Platelet Count 108L, Mean Platelet Volume 8.6, Neutrophils (%) (Auto) 59.4, Lymphocytes (%) (Auto) 27.7, Monocytes (%) (Auto) 10.6H, Eosinophils (%) (Auto) 1.6, Basophils (%) (Auto) 0.8, Sodium Level 140, Potassium Level 3.6, Chloride Level 107, Carbon Dioxide Level 24, Anion Gap 9, Blood Urea Nitrogen 12, Creatinine 0.7, Estimat Glomerular Filtration Rate > 60, Glucose Level 127H, Calcium Level 8.0L, Total Bilirubin 0.7, Aspartate Amino Transf (AST/SGOT) 194H , Alanine Aminotransferase (ALT/SGPT) 299H, Alkaline Phosphatase 149H, Total Protein 6.4, Albumin 2.5L, Globulin 3.9, Albumin/Globulin Ratio 0.6L Height (Feet): 5 Height (Inches): 0.00 Weight (Pounds): 140 General Appearance: lethargic EENT: normal ENT inspection Neck: normal alignment Cardiovascular: normal peripheral pulses, normal rate, regular rhythm Respiratory/Chest: chest wall non-tender, lungs clear, normal breath sounds Abdomen: normal bowel sounds, non tender, soft Extremities: normal inspection Edema: no edema noted Arm (L), no edema noted Arm (R), no edema noted Leg (L), no edema noted Leg (R), no edema noted Pedal (L), no edema noted Pedal (R), no edema noted Generalized Neurologic: responsive, motor weakness Skin: normal pigmentation, warm/dry URMILA NESS Mar 03, 2017 11:30
[2017-03-03 11:56] VITALS: BP 100/65
--- NOTE | 2017-03-03 12:44 | General Progress Note ---
Assessment/Plan Status: stable Assessment/Plan Status; abd pain- fatty liver and GSs: Alcoholic Hepatitis and Pancreatitis HTN DM Etoh abuse abnormal LFTs improving Plan: Per consultants- K supplement as needed monitor BP and renal parameters ? DC planning?? Subjective ROS Limited/Unobtainable: No Allergies: Coded Allergies: No Known Allergies (Unverified , 02/27/17) Objective Last 24 Hour Vital Signs Date Time Temp Pulse Resp B/P (MAP) Pulse Ox O2 Delivery O2 Flow Rate FiO2 03/03/17 11:56 97.9 58 19 100/65 98 Room Air 03/03/17 09:03 68 113/64 03/03/17 09:02 113/64 03/03/17 08:25 97.6 68 20 113/64 98 Room Air 03/03/17 04:00 97.7 60 17 116/81 97 Room Air 03/03/17 00:00 98.0 68 18 100/65 97 Room Air 03/02/17 20:00 97.4 60 18 141/89 99 Room Air 03/02/17 16:00 97.8 71 18 114/82 99 Room Air Laboratory Tests 03/03/17 06:40: White Blood Count 5.7, Red Blood Count 4.12L, Hemoglobin 11.7L, Hematocrit 35.8L , Mean Corpuscular Volume 87, Mean Corpuscular Hemoglobin 28.4, Mean Corpuscular Hemoglobin Concent 32.6, Red Cell Distribution Width 15.3H, Platelet Count 108L, Mean Platelet Volume 8.6, Neutrophils (%) (Auto) 59.4, Lymphocytes (%) (Auto) 27.7, Monocytes (%) (Auto) 10.6H, Eosinophils (%) (Auto) 1.6, Basophils (%) (Auto) 0.8, Sodium Level 140, Potassium Level 3.6, Chloride Level 107, Carbon Dioxide Level 24, Anion Gap 9, Blood Urea Nitrogen 12, Creatinine 0.7, Estimat Glomerular Filtration Rate > 60, Glucose Level 127H, Calcium Level 8.0L, Total Bilirubin 0.7, Aspartate Amino Transf (AST/SGOT) 194H , Alanine Aminotransferase (ALT/SGPT) 299H, Alkaline Phosphatase 149H, Total Protein 6.4, Albumin 2.5L, Globulin 3.9, Albumin/Globulin Ratio 0.6L Height (Feet): 5 Height (Inches): 0.00 Weight (Pounds): 140 General Appearance: no apparent distress Objective no other change ANTONIA EDMONDSON Mar 03, 2017 12:44
[2017-03-03 16:00] VITALS: BP 106/71
[2017-03-03 20:15] VITALS: BP 110/74
[2017-03-03] MEDS: TraZODone 50mg tab ORAL SCH (21:04)
--- NOTE | 2017-03-03 23:11 | Infectious Diseases Prog Note ---
Assessment/Plan Problems: (1) Abnormal LFTs Assessment & Plan: Acute hepatitis panel negative. Follow-up hepatobiliary studies. (2) Abdominal pain Assessment & Plan: Acute gastroenteritis? Supportive rx. Hold off on antibiotics. Subjective Allergies: Coded Allergies: No Known Allergies (Unverified , 02/27/17) Objective Vital Signs Last 24 Hour Vital Signs Date Time Temp Pulse Resp B/P (MAP) Pulse Ox O2 Delivery O2 Flow Rate FiO2 03/03/17 20:15 97.9 57 19 110/74 99 Room Air 03/03/17 16:00 98.0 52 19 106/71 98 Room Air 03/03/17 11:56 97.9 58 19 100/65 98 Room Air 03/03/17 09:03 68 113/64 03/03/17 09:02 113/64 03/03/17 08:25 97.6 68 20 113/64 98 Room Air 03/03/17 04:00 97.7 60 17 116/81 97 Room Air 03/03/17 00:00 98.0 68 18 100/65 97 Room Air Height (Feet): 5 Height (Inches): 0.00 Weight (Pounds): 140 Laboratory Tests Test 03/03/17 06:40 White Blood Count 5.7 K/UL (4.8-10.8) Red Blood Count 4.12 M/UL (4.20-5.40) L Hemoglobin 11.7 G/DL (12.0-16.0) L Hematocrit 35.8 % (37.0-47.0) L Mean Corpuscular Volume 87 FL (80-99) Mean Corpuscular Hemoglobin 28.4 PG (27.0-31.0) Mean Corpuscular Hemoglobin Concent 32.6 G/DL (32.0-36.0) Red Cell Distribution Width 15.3 % (11.6-14.8) H Platelet Count 108 K/UL (150-450) L Mean Platelet Volume 8.6 FL (6.5-10.1) Neutrophils (%) (Auto) 59.4 % (45.0-75.0) Lymphocytes (%) (Auto) 27.7 % (20.0-45.0) Monocytes (%) (Auto) 10.6 % (1.0-10.0) H Eosinophils (%) (Auto) 1.6 % (0.0-3.0) Basophils (%) (Auto) 0.8 % (0.0-2.0) Sodium Level 140 MMOL/L (136-145) Potassium Level 3.6 MMOL/L (3.5-5.1) Chloride Level 107 MMOL/L (98-107) Carbon Dioxide Level 24 MMOL/L (21-32) Anion Gap 9 mmol/L (5-15) Blood Urea Nitrogen 12 mg/dL (7-18) Creatinine 0.7 MG/DL (0.55-1.30) Estimat Glomerular Filtration Rate > 60 mL/min (>60) Glucose Level 127 MG/DL (74-106) H Calcium Level 8.0 MG/DL (8.5-10.1) L Total Bilirubin 0.7 MG/DL (0.2-1.0) Aspartate Amino Transf (AST/SGOT) 194 U/L (15-37) H Alanine Aminotransferase (ALT/SGPT) 299 U/L (12-78) H Alkaline Phosphatase 149 U/L (46-116) H Total Protein 6.4 G/DL (6.4-8.2) Albumin 2.5 G/DL (3.4-5.0) L Globulin 3.9 g/dL Albumin/Globulin Ratio 0.6 (1.0-2.7) L Current Medications Medications (Trade) Dose Ordered Sig/Giovanni Route PRN Reason Start Time Stop Time Status Last Admin Dose Admin Acetaminophen (Tylenol) 650 mg Q6H PRN ORAL Mild Pain/Temp > 100.5 03/03/17 07:30 04/02/17 07:29 03/03/17 22:45 Atenolol (Tenormin) 50 mg DAILY ORAL 02/28/17 09:00 03/30/17 08:59 03/03/17 09:03 Dextrose (Dextrose 50%) STAT PRN IV Hypoglycemia 02/27/17 22:15 03/29/17 22:14 Escitalopram Oxalate (Lexapro) 10 mg BEDTIME ORAL 03/03/17 21:00 04/02/17 20:59 03/03/17 21:04 Gabapentin (Neurontin) 300 mg THREE TIMES A DAY ORAL 02/28/17 09:00 03/30/17 08:59 03/03/17 17:00 Hydromorphone HCl (Dilaudid) 0.5 mg Q4H PRN IVP PAIN 4-10 02/28/17 13:00 03/07/17 12:59 03/01/17 01:54 Insulin Aspart (NovoLOG) BEFORE MEALS AND HS SUBQ 02/28/17 06:30 03/30/17 06:29 03/03/17 21:07 Lansoprazole (Prevacid) 30 mg DAILY ORAL 03/02/17 09:00 04/01/17 08:59 03/03/17 09:02 Lisinopril (Prinivil) 20 mg DAILY ORAL 02/28/17 09:00 03/30/17 08:59 03/03/17 09:02 Ondansetron HCl (Zofran) 4 mg Q6H PRN IVP Nausea & Vomiting 02/27/17 15:00 03/29/17 14:59 03/02/17 13:15 Trazodone HCl (Desyrel) 50 mg BEDTIME ORAL 03/01/17 21:00 03/31/17 20:59 03/03/17 21:04 ZAMZAM AMBROSE Mar 03, 2017 23:11
[2017-03-04 00:23] VITALS: BP 115/80
[2017-03-04 04:31] VITALS: BP 102/69
[2017-03-04] MEDS: NovoLOG Insulin Flexpen SUBQ SCH ×4 (06:30→20:51)
[2017-03-04 07:59] LABS: BASOPHILS % (AUTO) 1.2 % (0.0-2.0); EOSINOPHILS % (AUTO) 3.7 % (0.0-3.0); LYMPHOCYTES % (AUTO) 29.4 % (20.0-45.0); MEAN CORPUSCULAR HEMOGLOBIN 28.9 PG (27.0-31.0); MEAN CORPUSCULAR HGB CONC 32.7 G/DL (32.0-36.0); MEAN CORPUSCULAR VOLUME 88 FL (80-99); MEAN PLATELET VOLUME 8.1 FL (6.5-10.1); MONOCYTES % (AUTO) 14.7 % (1.0-10.0); PLATELET COUNT 104 K/UL (150-450); RED BLOOD COUNT 4.13 M/UL (4.20-5.40); RED CELL DISTRIBUTION WIDTH 16.7 % (11.6-14.8); WHITE BLOOD COUNT 4.9 K/UL (4.8-10.8)
[2017-03-04 08:00] VITALS: BP 101/70
[2017-03-04 08:08] LABS: ANION GAP 8 mmol/L (5-15); CALCIUM 8.3 MG/DL (8.5-10.1); CARBON DIOXIDE 27 MMOL/L (21-32); CHLORIDE 105 MMOL/L (98-107); CREATININE 0.8 MG/DL (0.55-1.30); GLOMERULAR FILTRATION RATE > 60 mL/min (>60); SODIUM 140 MMOL/L (136-145)
[2017-03-04] MEDS: Lisinopril 20mg tab ORAL SCH (08:51)
--- NOTE | 2017-03-04 09:49 | General Progress Note ---
Assessment/Plan Problem List: (1) Abdominal pain ICD Codes: R10.9 - Unspecified abdominal pain SNOMED: 51062534 Qualifiers: Qualified Codes: R10.11 - Right upper quadrant pain (2) Alcoholic hepatitis ICD Codes: K70.10 - Alcoholic hepatitis without ascites SNOMED: 280544538 (3) Acute alcoholic pancreatitis ICD Codes: K85.20 - Alcohol induced acute pancreatitis without necrosis or infection SNOMED: 782217073 (4) Abnormal LFTs ICD Codes: R79.89 - Other specified abnormal findings of blood chemistry SNOMED: 286268944 (5) acute L leg pulsy (6) Shock liver ICD Codes: K72.00 - Acute and subacute hepatic failure without coma SNOMED: 836523027 (7) r/o acute lumbar sacral plexopthy (8) Polyneuropathy, alcoholic ICD Codes: 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 - Alcoholic polyneuropathy SNOMED: 6381549 Status: stable, progressing, tolerating diet Assessment/Plan pain control abx prn gi f/u cbc bmp am Subjective Constitutional: Reports: weakness Allergies: Coded Allergies: No Known Allergies (Unverified , 02/27/17) All Systems: reviewed and negative except above Subjective sleepy calm Objective Last 24 Hour Vital Signs Date Time Temp Pulse Resp B/P (MAP) Pulse Ox O2 Delivery O2 Flow Rate FiO2 03/04/17 08:51 101/70 03/04/17 08:51 65 101/70 03/04/17 08:00 98.6 65 19 101/70 97 Room Air 03/04/17 04:31 97.4 59 19 102/69 95 Room Air 03/04/17 00:23 98.1 60 18 115/80 98 Room Air 03/03/17 20:15 97.9 57 19 110/74 99 Room Air 03/03/17 16:00 98.0 52 19 106/71 98 Room Air 03/03/17 11:56 97.9 58 19 100/65 98 Room Air Intake and Output 03/04/17 03/05/17 19:00 07:00 Intake Total 240 ml Balance 240 ml Intake Oral 240 ml Laboratory Tests 03/04/17 06:15: White Blood Count 4.9, Red Blood Count 4.13L, Hemoglobin 11.9L, Hematocrit 36.4L , Mean Corpuscular Volume 88, Mean Corpuscular Hemoglobin 28.9, Mean Corpuscular Hemoglobin Concent 32.7, Red Cell Distribution Width 16.7H, Platelet Count 104L, Mean Platelet Volume 8.1, Neutrophils (%) (Auto) 51.0, Lymphocytes (%) (Auto) 29.4, Monocytes (%) (Auto) 14.7H, Eosinophils (%) (Auto) 3.7H, Basophils (%) (Auto) 1.2, Sodium Level 140, Potassium Level 4.0, Chloride Level 105, Carbon Dioxide Level 27, Anion Gap 8, Blood Urea Nitrogen 11, Creatinine 0.8, Estimat Glomerular Filtration Rate > 60, Glucose Level 121H, Calcium Level 8.3L Height (Feet): 5 Height (Inches): 0.00 Weight (Pounds): 140 General Appearance: lethargic EENT: normal ENT inspection Neck: normal alignment Cardiovascular: normal peripheral pulses, normal rate, regular rhythm Respiratory/Chest: chest wall non-tender, lungs clear, normal breath sounds Abdomen: normal bowel sounds, non tender, soft Extremities: normal inspection Edema: no edema noted Arm (L), no edema noted Arm (R), no edema noted Leg (L), no edema noted Leg (R), no edema noted Pedal (L), no edema noted Pedal (R), no edema noted Generalized Neurologic: responsive, motor weakness Skin: normal pigmentation, warm/dry URMILA NESS Mar 04, 2017 09:49
--- NOTE | 2017-03-04 09:50 | Diagnostic Imaging Report ---
APPROVED REPORT CPT Code: 94836 Present Symptoms Comments: Numbness and tingling in the left leg BILATERAL: Imaging reveals a patent deep venous system bilaterally. There is no evidence of thrombus within the femoral, popliteal or tibial segments. The greater saphenous veins are also within normal limits. Doppler indicates normal spontaneous flow within these segments.
[2017-03-04 11:08] LABS: ALANINE AMINOTRANSFERASE 306 U/L (12-78); ASPARTATE AMINO TRANSFERASE 220 U/L (15-37); BILIRUBIN,DIRECT 0.2 MG/DL (0.0-0.3); TOTAL PROTEIN 6.9 G/DL (6.4-8.2)
--- NOTE | 2017-03-04 11:32 | General Progress Note ---
Assessment/Plan Status: stable Assessment/Plan Status; abd pain- fatty liver and GSs: Alcoholic Hepatitis and Pancreatitis HTN DM Etoh abuse abnormal LFTs improving Plan: Per consultants- K supplement as needed monitor BP and renal parameters ? DC planning?? Subjective ROS Limited/Unobtainable: No Allergies: Coded Allergies: No Known Allergies (Unverified , 02/27/17) Objective Last 24 Hour Vital Signs Date Time Temp Pulse Resp B/P (MAP) Pulse Ox O2 Delivery O2 Flow Rate FiO2 03/04/17 08:51 101/70 03/04/17 08:51 65 101/70 03/04/17 08:00 98.6 65 19 101/70 97 Room Air 03/04/17 04:31 97.4 59 19 102/69 95 Room Air 03/04/17 00:23 98.1 60 18 115/80 98 Room Air 03/03/17 20:15 97.9 57 19 110/74 99 Room Air 03/03/17 16:00 98.0 52 19 106/71 98 Room Air 03/03/17 11:56 97.9 58 19 100/65 98 Room Air Intake and Output 03/04/17 03/05/17 19:00 07:00 Intake Total 240 ml Balance 240 ml Intake Oral 240 ml Laboratory Tests 03/04/17 06:15: White Blood Count 4.9, Red Blood Count 4.13L, Hemoglobin 11.9L, Hematocrit 36.4L , Mean Corpuscular Volume 88, Mean Corpuscular Hemoglobin 28.9, Mean Corpuscular Hemoglobin Concent 32.7, Red Cell Distribution Width 16.7H, Platelet Count 104L, Mean Platelet Volume 8.1, Neutrophils (%) (Auto) 51.0, Lymphocytes (%) (Auto) 29.4, Monocytes (%) (Auto) 14.7H, Eosinophils (%) (Auto) 3.7H, Basophils (%) (Auto) 1.2, Sodium Level 140, Potassium Level 4.0, Chloride Level 105, Carbon Dioxide Level 27, Anion Gap 8, Blood Urea Nitrogen 11, Creatinine 0.8, Estimat Glomerular Filtration Rate > 60, Glucose Level 121H, Calcium Level 8.3L, Total Bilirubin 0.5, Direct Bilirubin 0.2, Aspartate Amino Transf (AST/SGOT) 220H, Alanine Aminotransferase (ALT/SGPT) 306H, Alkaline Phosphatase 164H, Total Protein 6.9, Albumin 2.6L Height (Feet): 5 Height (Inches): 0.00 Weight (Pounds): 140 General Appearance: no apparent distress Objective no other change ANTONIA EDMONDSON Mar 04, 2017 11:32
[2017-03-04 12:08] VITALS: BP 112/74
[2017-03-04 16:00] VITALS: BP 124/81
[2017-03-04 20:12] VITALS: BP 118/78
[2017-03-04] MEDS: TraZODone 50mg tab ORAL SCH (20:45)
[2017-03-05 00:15] VITALS: BP 120/75
[2017-03-05 04:21] VITALS: BP 102/61
[2017-03-05] MEDS: NovoLOG Insulin Flexpen SUBQ SCH ×3 (06:30→11:54)
[2017-03-05] MEDS: Hydromorphone 0.5mg/0.5ml inj IVP PRN (06:50)
[2017-03-05 08:18] LABS: MEAN CORPUSCULAR HEMOGLOBIN 28.7 PG (27.0-31.0); MEAN CORPUSCULAR HGB CONC 32.5 G/DL (32.0-36.0); MEAN CORPUSCULAR VOLUME 88 FL (80-99); MEAN PLATELET VOLUME 8.7 FL (6.5-10.1); PLATELET COUNT 96 K/UL (150-450); RED BLOOD COUNT 4.12 M/UL (4.20-5.40); RED CELL DISTRIBUTION WIDTH 16.2 % (11.6-14.8); WHITE BLOOD COUNT 4.1 K/UL (4.8-10.8)
[2017-03-05 08:28] LABS: ANION GAP 5 mmol/L (5-15); CALCIUM 8.1 MG/DL (8.5-10.1); CARBON DIOXIDE 28 MMOL/L (21-32); CHLORIDE 103 MMOL/L (98-107); CREATININE 0.8 MG/DL (0.55-1.30); GLOMERULAR FILTRATION RATE > 60 mL/min (>60); POTASSIUM 3.7 MMOL/L (3.5-5.1); SODIUM 136 MMOL/L (136-145)
[2017-03-05 08:44] VITALS: BP 114/62
[2017-03-05] MEDS ORDERED: Lisinopril 10mg tab ORAL SCH (09:00)
--- NOTE | 2017-03-05 10:13 | GI Progress Note ---
Assessment/Plan Problems: (1) Acute alcoholic pancreatitis ICD Codes: K85.20 - Alcohol induced acute pancreatitis without necrosis or infection SNOMED: 628582261 (2) Alcoholic hepatitis ICD Codes: K70.10 - Alcoholic hepatitis without ascites SNOMED: 968356518 (3) Abdominal pain ICD Codes: R10.9 - Unspecified abdominal pain SNOMED: 10943590 Qualifiers: Qualified Codes: R10.11 - Right upper quadrant pain (4) Abnormal LFTs ICD Codes: R79.89 - Other specified abnormal findings of blood chemistry SNOMED: 489852652 (5) Shock liver ICD Codes: K72.00 - Acute and subacute hepatic failure without coma SNOMED: 850086921 Status: progressing Status Narrative Discussed with Dr. Lake. Assessment/Plan MRCP reviewed >> Essentially nondiagnostic exam. abdominal U/S reviewed >> Hepatomegaly with fatty infiltration. Possible gallstone. elevated LFTs most likely 2/2 to shock liver unknown etiology >> resolving utox unremarkable lipase now normal elevated GGT hep panel >> negative patient admits being depressed and abusing ETOH okay for DC per GI standpoint adv to soft diet today pain mgmt bowel regime ppi repeat LFTs >> downtrending fu labs Subjective Gastrointestinal/Abdominal: Reports: abdominal pain Subjective abdominal pain improved wants to go home Objective Last 24 Hour Vital Signs Date Time Temp Pulse Resp B/P (MAP) Pulse Ox O2 Delivery O2 Flow Rate FiO2 03/05/17 08:47 76 114/62 03/05/17 08:46 114/62 03/05/17 08:44 98.2 76 18 114/62 95 Room Air 03/05/17 04:21 98.0 70 18 102/61 95 Room Air 03/05/17 00:15 98.1 70 19 120/75 95 Room Air 03/04/17 20:12 98.0 68 18 118/78 96 Room Air 03/04/17 16:00 97.4 62 18 124/81 97 Room Air 03/04/17 12:08 98.8 66 18 112/74 95 Room Air Laboratory Tests Test 03/05/17 06:45 White Blood Count 4.1 K/UL (4.8-10.8) L Red Blood Count 4.12 M/UL (4.20-5.40) L Hemoglobin 11.8 G/DL (12.0-16.0) L Hematocrit 36.4 % (37.0-47.0) L Mean Corpuscular Volume 88 FL (80-99) Mean Corpuscular Hemoglobin 28.7 PG (27.0-31.0) Mean Corpuscular Hemoglobin Concent 32.5 G/DL (32.0-36.0) Red Cell Distribution Width 16.2 % (11.6-14.8) H Platelet Count 96 K/UL (150-450) L Mean Platelet Volume 8.7 FL (6.5-10.1) Neutrophils (%) (Auto) % (45.0-75.0) Lymphocytes (%) (Auto) % (20.0-45.0) Monocytes (%) (Auto) % (1.0-10.0) Eosinophils (%) (Auto) % (0.0-3.0) Basophils (%) (Auto) % (0.0-2.0) Neutrophils % (Manual) Pending Lymphocytes % (Manual) Pending Platelet Estimate Pending Platelet Morphology Pending Sodium Level 136 MMOL/L (136-145) Potassium Level 3.7 MMOL/L (3.5-5.1) Chloride Level 103 MMOL/L (98-107) Carbon Dioxide Level 28 MMOL/L (21-32) Anion Gap 5 mmol/L (5-15) Blood Urea Nitrogen 11 mg/dL (7-18) Creatinine 0.8 MG/DL (0.55-1.30) Estimat Glomerular Filtration Rate > 60 mL/min (>60) Glucose Level 124 MG/DL (74-106) H Calcium Level 8.1 MG/DL (8.5-10.1) L Height (Feet): 5 Height (Inches): 0.00 Weight (Pounds): 140 General Appearance: WD/WN, no apparent distress, alert, overweight Cardiovascular: normal rate Respiratory/Chest: normal breath sounds, no respiratory distress Abdominal Exam: normal bowel sounds, non tender, soft Extremities: normal range of motion, non-tender Sharon Sherman N.P. Mar 05, 2017 10:13
[2017-03-05 10:21] LABS: ANISOCYTOSIS 1+; BAND NEUTROPHILS % (MANUAL) 0 % (0-8); BASOPHILS % (MANUAL) 0 % (0-2); EOSINOPHILS % (MANUAL) 2 % (0-3); LYMPHOCYTES % (MANUAL) 36 % (20-45); NEUTROPHILS % (MANUAL) 49 % (45-75); PLATELET ESTIMATE DECREASED; PLATELET MORPHOLOGY NORMAL; TOTAL CELLS COUNTED 100
--- NOTE | 2017-03-05 10:27 | General Progress Note ---
Assessment/Plan Status: stable Assessment/Plan Status; abd pain- fatty liver and GSs: Alcoholic Hepatitis and Pancreatitis HTN DM Etoh abuse abnormal LFTs improving Plan: Per consultants- K supplement as needed monitor BP and renal parameters ? DC planning?? Subjective ROS Limited/Unobtainable: No Constitutional: Reports: malaise Allergies: Coded Allergies: No Known Allergies (Unverified , 02/27/17) Objective Last 24 Hour Vital Signs Date Time Temp Pulse Resp B/P (MAP) Pulse Ox O2 Delivery O2 Flow Rate FiO2 03/05/17 08:47 76 114/62 03/05/17 08:46 114/62 03/05/17 08:44 98.2 76 18 114/62 95 Room Air 03/05/17 04:21 98.0 70 18 102/61 95 Room Air 03/05/17 00:15 98.1 70 19 120/75 95 Room Air 03/04/17 20:12 98.0 68 18 118/78 96 Room Air 03/04/17 16:00 97.4 62 18 124/81 97 Room Air 03/04/17 12:08 98.8 66 18 112/74 95 Room Air Laboratory Tests 03/05/17 06:45: White Blood Count 4.1L, Red Blood Count 4.12L, Hemoglobin 11.8L, Hematocrit 36.4L, Mean Corpuscular Volume 88, Mean Corpuscular Hemoglobin 28.7, Mean Corpuscular Hemoglobin Concent 32.5, Red Cell Distribution Width 16.2H, Platelet Count 96L, Mean Platelet Volume 8.7, Neutrophils (%) (Auto) , Lymphocytes (%) (Auto) , Monocytes (%) (Auto) , Eosinophils (%) (Auto) , Basophils (%) (Auto) , Differential Total Cells Counted 100, Neutrophils % ( Manual) 49, Lymphocytes % (Manual) 36, Monocytes % (Manual) 13H, Eosinophils % ( Manual) 2, Basophils % (Manual) 0, Band Neutrophils 0, Platelet Estimate DecreasedL, Platelet Morphology Normal, Anisocytosis 1+, Sodium Level 136, Potassium Level 3.7, Chloride Level 103, Carbon Dioxide Level 28, Anion Gap 5, Blood Urea Nitrogen 11, Creatinine 0.8, Estimat Glomerular Filtration Rate > 60 , Glucose Level 124H, Calcium Level 8.1L Height (Feet): 5 Height (Inches): 0.00 Weight (Pounds): 140 General Appearance: no apparent distress Objective no other change ANTONIA EDMONDSON Mar 05, 2017 10:27
[2017-03-05 12:00] VITALS: BP 124/68
--- NOTE | 2017-03-06 09:31 | Consultation ---
DATE OF CONSULTATION: 03/05/2017 HEMATOLOGY/ONCOLOGY CONSULTATION CONSULTING PHYSICIAN: Benjamin Avila M.D. REQUESTING PHYSICIAN: Ruben Padron M.D. REASON FOR CONSULTATION: Evaluation of pancytopenia. IDENTIFICATION DATA: Dear Dr. Padron: The patient is a very pleasant, young 36-year-old female with past medical history, which is significant for , hypertension, noninsulin-dependent diabetes mellitus, alcohol abuse, at this time presents with abdominal pain and elevated LFTs. CT scan showed hepatomegaly. Has had abdominal pain for the last week intermittent. Denies constipation. She has been seen by multiple services to be discharged, noted to be pancytopenic still. Hematology service consulted. PAST MEDICAL HISTORY: As noted above. PAST SURGICAL HISTORY: . MEDICATIONS: Atenolol, gabapentin, hydrochlorothiazide, lisinopril, and metformin. ALLERGIES: No known drug allergies. SOCIAL HISTORY: No illicit drug use. No tobacco, but does have alcohol use. FAMILY HISTORY: Noncontributory. REVIEW OF SYSTEMS: CONSTITUTIONAL: No fever, chills, or night sweats. SKIN: No rashes, lumps, or itching. HEENT: No headache, hearing or vision changes. BREASTS: No lumps, pain, or discharge. PULMONARY: No cough, sputum, or shortness of breath. GASTROINTESTINAL: No nausea, vomiting, or diarrhea. GENITOURINARY: No dysuria, frequency, or urgency. MUSCULOSKELETAL: No joint swelling, muscle pain, or trauma. PHYSICAL EXAMINATION: VITAL SIGNS: Reviewed. GENERAL: No acute distress. PULMONARY: Decreased breath sounds. CARDIOVASCULAR: Regular rate. No S3 or S4. ABDOMEN: Soft, nontender, and nondistended. EXTREMITIES: A 1+ edema. LABORATORY AND DIAGNOSTIC DATA: WBC of 5.6, hemoglobin of 14.3, hematocrit 42, and platelet count 204,000. BUN of 12 and creatinine 1. AST 952 and ALT 947. Duplex of lower extremities on 03/01/2017 was negative. Abdomen MRI shows nondiagnostic exam extremely limited due to movement. Abdominal ultrasound revealed hepatomegaly without infiltration, obese. CAT scan, hepatomegaly without infiltration. ASSESSMENT AND RECOMMENDATIONS: 1. Pancytopenia, secondary to likely alcohol abuse. 2. Mild depression. Continue to closely monitor has been ordered. 3. Thrombocytopenia, secondary to splenomegaly noted. 4. Alcohol abuse, causing myelosuppression. Continue to closely monitor. 5. Elevated liver function tests, transaminitis secondary to shock liver. 6. Hepatomegaly. 7. Abdominal pain, currently improved. 8. Alcoholic acute pancreatitis. I appreciate the consultation. Benjamin Avila M.D. DR: Jimmie JOB#: [id number] CC:
--- NOTE | 2017-03-06 14:21 | Discharge Summary ---
Discharge Summary Hospital Course Date of Admission Feb 27, 2017 at 11:25 Date of Discharge Mar 05, 2017 at 14:28 Admitting Diagnosis biliary colic HPI Jen Beltran is a 36 year old female who was admitted on Feb 27, 2017 at 11 :25 for Biliary Colic Hospital Course dc summary #[id number] Discharge Medications Continued Medications: Atenolol* (Tenormin*) 50 Mg Tablet 50 MG ORAL DAILY, TAB Gabapentin* (Gabapentin*) 300 Mg Capsule 300 MG ORAL THREE TIMES A DAY, CAP 0 Refills Lisinopril/Hydrochlorothiazide 20-12.5 Mg Tab (Lisinopril-Hctz 20-12.5 Mg Tab) 1 Each Tablet 1 TAB ORAL DAILY, TAB Metformin Hcl* (Metformin Hcl*) 1,000 Mg Tablet 1000 MG ORAL BID, TAB Discharge Condition Upon Discharge: stable Discharge Disposition Patient was discharged to Home (01) Discharge Diagnoses: Discharge Instructions Discharge Instructions Special Instructions I have been assigned to complete a D/C Summary on this account. I was not involved in the patient management Angelic Bernardo NP ([place]te[place]) Mar 06, 2017 14:21
--- NOTE | 2017-03-07 09:46 | Discharge Summary 2 SIG ---
DATE OF ADMISSION: 02/27/2017 DATE OF DISCHARGE: 03/05/2017 REASON FOR ADMISSION: 36-year-old female with a history of diabetes and hypertension, presented to emergency department due to the abdominal pain. The patient reported cramping diffused nonradiating abdominal pain, 8/10 on a scale 1 to 10. She noted vomiting. No blood in emesis. Denied fever and chills. Denied chest pain or shortness of breath. Denied diarrhea. Denied sick contacts. In the emergency department, vital signs were stable. Blood pressure was elevated at 158/118. Pulse oximetry was stable on room air. No leukocytosis. Stable hemoglobin and hematocrit. Lipase -481. AST- 952 and ALT-947. CT of the abdomen and pelvis revealed hepatomegaly and gallbladder with stones. The patient was admitted for further management. HOSPITAL STAY: The patient was initially kept NPO, on the IV fluids. GI and Surgery consults were requested. LFTs were trending. MRCP revealed essentially nondiagnostic exam. Abdominal ultrasound revealed hepatomegaly with fatty infiltration, possible gallstones. Elevated LFT were likely secondary to shock live, gradually resolving. Hepatitis panel was negative. Urine toxicology screen unremarkable. Lipase down to normal at 207. LFT trending down, AST from 952 to 220 and ALT from 947 to 306. Noted elevated GGT consistent with history of alcohol abuse. GI recommended symptomatic treatment. Diet was slowly advanced. Bowel regimen was instituted. Pain management was provided. GI prophylaxis was initiated. Stool for C difficile was negative. Neurologist seen the patient in lieu to the acute onset of left lower extremity weakness. The patient had acute peripheral left lower extremity palsy. Neurologist wanted to rule out lumbosacral plexopathy versus alcohol related amyotrophy. Subsequently, MRI of the lumbar sacral spine revealed no intraspinal or nerve root abnormality, no evidence of spinal or foraminal stenosis. MRI of the abdomen and CT of the abdomen revealed no retroperitoneal lesions to account for left lower extremity weakness. The patient was started on the trial of the steroids with Decadron with close monitoring of blood pressure, blood sugar, and liver enzymes. LFT were trending down. Lipase was trending down. Per surgeon, there was a little to suggest that gallstones were contributing to her clinical picture. Per surgery, the problem secondary only to acute alcohol excess. Blood pressure was managed with the current regimen of antihypertensive and was stable. Urine test was negative. Urinalysis was negative. The patient was counseled on abstinence from alcohol and given references for Alcoholic Anonymous. Urine toxicology screen was negative. The patient was working with physical and occupational therapists. Electrolytes were repleted as needed. Venous duplex of bilateral lower extremities revealed no evidence of acute DVT. Blood sugar was managed with sliding scale of insulin. [id number], need further optimization of anti-glycemic regimen to bring HgA1c under goal of below 7. The patient was stable for discharge back home and follow up with the primary medical doctor. FINAL DIAGNOSES: 1. Alcoholic hepatitis 2. Acute alcoholic pancreatitis 3. Shock liver ( due to acute alcohol excess) 4. Elevated liver function tests, l secondary to shock liver. 5. Alcoholic polyneuropathy. 6. Fatty liver. 7. Alcohol dependency. 8. Electrolyte imbalance with hypokalemia and hypomagnesemia. 9. Diabetes. 10. Hypertension. DISCHARGE MEDICATIONS: See medication reconciliation list. DISCHARGE INSTRUCTIONS: The patient was discharged home. Follow up with primary medical doctor. Ruben Padron M.D. I have been assigned to dictate discharge summary on this account and I was not involved in the patient's management. Angelic Geetanesha N.PDaniel DR: GARY JOB#: [id number] CC: HIEN
== END 2017-03-05 14:28 | disposition home or self-care (01) | DRG 282 ==
LOC: EDBD 08:38 → EMR 09:12 → 3E 11:25 → EDBEDREQ 14:09
DX: K85.20 Alcohol induced acute pancreatitis without necrosis or infection (principal); K72.00 Acute and subacute hepatic failure without coma; G62.1 Alcoholic polyneuropathy; K70.0 Alcoholic fatty liver; E83.42 Hypomagnesemia; K70.10 Alcoholic hepatitis without ascites; I10 Essential (primary) hypertension; F10.20 Alcohol dependence, uncomplicated; E87.6 Hypokalemia; E11.9 Type 2 diabetes mellitus without complications; Z79.84 Long term (current) use of oral hypoglycemic drugs
CPT/HCPCS: 36415; 72158; 74177; 74181; 76700; 80048; 80053; 80061; 80076; 80306; 81003; 81025; 82150; 82248; 82550; 82962; 82977; 83036; 83690; 83735; 84100; 84550; 85007; 85025; 86705; 86709; 86803; 87324; 87340; 93922; 93970; 99285; A9585; J1815; J2405

== ENCOUNTER 2017-05-18 16:33 | Emergency (ER) | payer MEDICAID ==
[~2017-05-18] VITALS: Ht 157.5 cm; Wt 113.4 kg
[~2017-05-18 16:33] MED LIST: ATENOLOL50 MG ORAL; GABAPENTIN300 MG ORAL; LISINOPRIL-HCT1 EAC1 ORAL; METFORMIN HCL1000 M1 ORAL
--- NOTE | 2017-05-18 16:56 | Emergency Room Report ---
History of Present Illness General Chief Complaint: Pain Present Illness HPI 37 YO Female presents to the ED c/o 12/21 in severity right upper quadrant pain with vomiting and diarrhea x2 days. Patient also reports paresthesias of the upper extremities in addition to history of diabetes and she is concerned about her blood sugar level. Patient denies recent travel or ill contacts she denies blood in the vomit or stool she denies black tarry stools. She reports history of drinking. She denies trauma or fall. Denies fevers, chills, rashes. Denies neck or back pain. Denies loss of gross motor movements or sensations. Denies CP, Palpitations, LOC, AMS, dizziness, Changes in Vision, Sensation, or a sudden severe headache. PmHx of DM and HTN. Allergies: Coded Allergies: No Known Allergies (Unverified , 02/27/17) Patient History Past Medical History: see triage record Past Surgical History: none Pertinent Family History: none Now: No Immunizations: UTD Reviewed Nursing Documentation: PMH: Agreed, PSxH: Agreed Nursing Documentation-PMH Hx Cardiac Problems: No Hx Hypertension: Yes Hx Diabetes: Yes Hx Cancer: No Hx Gastrointestinal Problems: Yes Hx Neurological Problems: No Review of Systems All Other Systems: negative except mentioned in HPI Physical Exam Vital Signs Date Time Temp Pulse Resp B/P (MAP) Pulse Ox O2 Delivery O2 Flow Rate FiO2 05/18/17 16:37 98.1 105 20 144/92 100 Room Air Sp02 EP Interpretation: reviewed, normal General Appearance: alert, GCS 15, non-toxic, mild distress Head: normocephalic, atraumatic Eyes: bilateral eye normal inspection, bilateral eye PERRL ENT: hearing grossly normal, normal voice Neck: full range of motion Respiratory: chest non-tender, lungs clear, normal breath sounds, no respiratory distress, no wheezing, speaking full sentences Cardiovascular #1: regular rate, rhythm, no edema, normal capillary refill Gastrointestinal: normal bowel sounds, soft, no guarding, no rebound, tenderness - RUQ TTP. Rectal: deferred Genitourinary: normal inspection, no CVA tenderness Musculoskeletal: back normal, gait/station normal, normal range of motion, non- tender Neurologic: alert, oriented x3, responsive, motor strength/tone normal, sensory intact, normal gait, speech normal Skin: normal color, no rash, warm/dry, well hydrated, other - no jaundice Lymphatic: no adenopathy Medical Decision Making PA Attestation Dr. Zaldivar is my supervising Physician whom patient management has been discussed with. Diagnostic Impression: Primary Impression: UTI (urinary tract infection) Qualified Codes: N30.00 - Acute cystitis without hematuria Additional Impressions: Abnormal LFTs Pain Diarrhea Qualified Codes: R19.7 - Diarrhea, unspecified ER Course 37 YO Female presents to the ED c/o 12/21 in severity right upper quadrant pain with vomiting and diarrhea x2 days. Patient also reports paresthesias of the upper extremities in addition to history of diabetes and she is concerned about her blood sugar level. Patient denies recent travel or ill contacts she denies blood in the vomit or stool she denies black tarry stools. She reports history of drinking. She denies trauma or fall. Denies fevers, chills, rashes. Denies neck or back pain. Denies loss of gross motor movements or sensations. Denies CP, Palpitations, LOC, AMS, dizziness, Changes in Vision, Sensation, or a sudden severe headache. PmHx of DM and HTN. Ddx considered but are not limited to Diverticulitis, acute appy, diarrhea,UC, PUD, GE, pancreatitis, gallstones just to name a few. Vital signs: mildly tachycardic at 105 remaining VS are WNL, pt. is afebrile Review of this patient's this ED visit shows history of alcoholism as well as alcoholic hepatitis. H&PE are most consistent with gastroenteritis in pt. with hx of alcoholism, and gastritis. will assess glucose and electrolytes for complaint of paresthesias. ORDERS: -CBC: mild anemia -CMP: elevated LFT's and Alk. Phos -lipase: WNL -UA: Positive for infection -Urine Hcg: Negative ---ABDOMINAL US: unremarkable per US technologist verbal report. ED INTERVENTIONS: -- 1000NS, -- zofran 4mg. -Morphine IV -Bentyl Pt. is able to tolerate oral liquids. d/w pt. results of her labs and US imaging studies. D/w pt. that she is stable for close outpatient follow up with her PMD and GI specialist. encouraged pt. to refrain from Alcohol use. Gave Pt. ED return precautions. DISCHARGE: At this time pt. is stable for d/c to home. Will provide printed patient care instructions, and any necessary prescriptions. Care plan and follow up instructions have been discussed with the patient prior to discharge. Labs Test 05/18/17 17:00 White Blood Count 5.3 K/UL (4.8-10.8) Red Blood Count 3.80 M/UL (4.20-5.40) Hemoglobin 10.6 G/DL (12.0-16.0) Hematocrit 34.7 % (37.0-47.0) Mean Corpuscular Volume 91 FL (80-99) Mean Corpuscular Hemoglobin 27.9 PG (27.0-31.0) Mean Corpuscular Hemoglobin Concent 30.6 G/DL (32.0-36.0) Red Cell Distribution Width 15.0 % (11.6-14.8) Platelet Count 139 K/UL (150-450) Mean Platelet Volume 8.0 FL (6.5-10.1) Neutrophils (%) (Auto) 67.0 % (45.0-75.0) Lymphocytes (%) (Auto) 20.0 % (20.0-45.0) Monocytes (%) (Auto) 7.7 % (1.0-10.0) Eosinophils (%) (Auto) 4.5 % (0.0-3.0) Basophils (%) (Auto) 0.8 % (0.0-2.0) Urine Color Pale yellow Urine Appearance Cloudy Urine pH 7 (4.5-8.0) Urine Specific [place] 1.005 (1.005-1.035) Urine Protein 1+ (NEGATIVE) Urine Glucose (UA) Negative (NEGATIVE) Urine Ketones Negative (NEGATIVE) Urine Occult Blood 5+ (NEGATIVE) Urine Nitrite Negative (NEGATIVE) Urine Bilirubin Negative (NEGATIVE) Urine Urobilinogen Normal MG/DL (0.0-1.0) Urine Leukocyte Esterase 2+ (NEGATIVE) Urine RBC Tntc /HPF (0 - 2) Urine WBC 5-10 /HPF (0 - 2) Urine Squamous Epithelial Cells Few /LPF (NONE/OCC) Urine Bacteria Few /HPF (NONE) Urine HCG, Qualitative Negative Sodium Level 137 MMOL/L (136-145) Potassium Level 3.7 MMOL/L (3.5-5.1) Chloride Level 104 MMOL/L (98-107) Carbon Dioxide Level 24 MMOL/L (21-32) Anion Gap 9 mmol/L (5-15) Blood Urea Nitrogen 6 mg/dL (7-18) Creatinine 0.6 MG/DL (0.55-1.30) Estimat Glomerular Filtration Rate > 60 mL/min (>60) Glucose Level 134 MG/DL (74-106) Calcium Level 7.4 MG/DL (8.5-10.1) Total Bilirubin 0.3 MG/DL (0.2-1.0) Aspartate Amino Transf (AST/SGOT) 187 U/L (15-37) Alanine Aminotransferase (ALT/SGPT) 231 U/L (12-78) Alkaline Phosphatase 149 U/L (46-116) Total Protein 7.6 G/DL (6.4-8.2) Albumin 2.8 G/DL (3.4-5.0) Globulin 4.8 g/dL Albumin/Globulin Ratio 0.6 (1.0-2.7) Lipase 332 U/L (73-393) Last Vital Signs Date Time Temp Pulse Resp B/P (MAP) Pulse Ox O2 Delivery O2 Flow Rate FiO2 05/18/17 16:37 98.1 105 20 144/92 100 Room Air Disposition: HOME, SELF-CARE Condition: Stable Scripts Dicyclomine Hcl* (BENTYL*) 10 Mg Capsule 10 MG ORAL FOUR TIMES A DAY, #9 CAP Prov: Jocy Caldwell P.A. 05/18/17 Ibuprofen* (MOTRIN*) 400 Mg Tablet 400 MG ORAL THREE TIMES A DAY, #20 TAB 0 Refills Prov: Jocy Caldwell P.A. 05/18/17 Phenazopyridine Hcl* (PYRIDIUM*) 200 Mg Tablet 200 MG ORAL THREE TIMES A DAY for 3 Days, #9 TAB 0 Refills Prov: Jocy Caldwell P.A. 05/18/17 Nitrofurantoin Monohyd/M-Cryst* (MACROBID 100 MG*) 100 Mg Capsule 100 MG ORAL EVERY 12 HOURS for 5 Days, #10 CAP Prov: Jocy Caldwell P.A. 05/18/17 Patient Instructions: Alcoholic Liver Disease, [id number], Liver Function Tests, Urinary Tract Infection, [id number] Additional Instructions: Take medications as directed. Follow up with a Primary Care Provider and Heptologist in 3-5 days, even if your symptoms have resolved. --Please review list of primary care clinics, if you do not already have a primary care provider Return sooner to ED if new symptoms occur, or current symptoms become worse. Do not drink alcohol. - Please note that this Emergency Department Report was dictated using [employer] technology software, occasionally this can lead to erroneous entry secondary to interpretation by the dictation equipment. Jocy Caldwell May 18, 2017 16:56
[2017-05-18] MEDS ORDERED: Morphine Sulfate 4mg/ml Inj IVP ONE (17:00)
[2017-05-18 17:25] LABS: APPEARANCE,URINE CLOUDY; BILIRUBIN, URINE NEGATIVE (NEGATIVE); COLOR,URINE PALE YELLOW; GLUCOSE, URINE (UA) NEGATIVE (NEGATIVE); KETONES,URINE NEGATIVE (NEGATIVE); LEUKOCYTE ESTERASE ,URINE 2+ (NEGATIVE); NITRITE,URINE NEGATIVE (NEGATIVE); PH,URINE 7 (4.5-8.0); PROTEIN,URINE 1+ (NEGATIVE); UROBILINOGEN,URINE NORMAL MG/DL (0.0-1.0)
[2017-05-18 17:49] LABS: BASOPHILS % (AUTO) 0.8 % (0.0-2.0); EOSINOPHILS % (AUTO) 4.5 % (0.0-3.0); HEMATOCRIT 34.7 % (37.0-47.0); HEMOGLOBIN 10.6 G/DL (12.0-16.0); MEAN CORPUSCULAR VOLUME 91 FL (80-99); MONOCYTES % (AUTO) 7.7 % (1.0-10.0); PLATELET COUNT 139 K/UL (150-450); WHITE BLOOD COUNT 5.3 K/UL (4.8-10.8)
[2017-05-18 18:07] LABS: ANION GAP 9 mmol/L (5-15); BLOOD UREA NITROGEN 6 mg/dL (7-18); CALCIUM 7.4 MG/DL (8.5-10.1); CARBON DIOXIDE 24 MMOL/L (21-32); CHLORIDE 104 MMOL/L (98-107); CREATININE 0.6 MG/DL (0.55-1.30); POTASSIUM 3.7 MMOL/L (3.5-5.1); SODIUM 137 MMOL/L (136-145)
[2017-05-18 18:11] LABS: ALANINE AMINOTRANSFERASE 231 U/L (12-78); ALBUMIN 2.8 G/DL (3.4-5.0); ALBUMIN/GLOBULIN RATIO 0.6 (1.0-2.7); ALKALINE PHOSPHATASE 149 U/L (46-116); ASPARTATE AMINO TRANSFERASE 187 U/L (15-37); BILIRUBIN,TOTAL 0.3 MG/DL (0.2-1.0)
[2017-05-18] MEDS ORDERED: NITROFURANTOIN100 M2 ORAL (18:45)
[2017-05-18] MEDS ORDERED: IBUPROFEN400 MG ORAL (18:45)
[2017-05-18] MEDS ORDERED: PHENAZOPYRIDIN200 MG ORAL (18:45)
[2017-05-18] MEDS ORDERED: BENTYL10 MG ORAL (18:47)
[2017-05-18 18:59] VITALS: BP 152/99
[2017-05-18] MEDS ORDERED: Dicyclomine HCl 10mg/5ml oral soln ORAL ONE (19:00)
== END 2017-05-18 18:59 | disposition home or self-care (01) ==
LOC: EMR 17:50
DX: N30.00 Acute cystitis without hematuria (principal); R19.7 Diarrhea, unspecified; R52 Pain, unspecified; R79.89 Other specified abnormal findings of blood chemistry; E11.9 Type 2 diabetes mellitus without complications; I10 Essential (primary) hypertension
CPT/HCPCS: 36415; 76700; 80053; 81003; 81025; 83690; 85025; 96361; 96374; 96375; 99284; J2270; J2405